=== PATIENT | male | born 1935 | race Caucasian/White ===

== ENCOUNTER 2019-01-30 13:23 | Inpatient (IN) | payer OTHER ==
[~2019-01-30] VITALS: Ht 167.6 cm; Wt 58.9 kg
--- NOTE | ~2019-01-30 | CON ---
[address] [address] CONSULTATION Name: PLACIDO IVORY Room: [address] IN M.R.#: [id number] Admission: 01/30/19 Attend Phys: Sukhi Carranza, Discharge: Date of : 31 Report #: [id number] THIS REPORT FOR: //name// CC: Monster Carranza HISTORY OF PRESENT ILLNESS: The patient is a very pleasant 83-year-old male who states that he lives at [facility], which is across the street from this hospital. The patient has had multiple strokes, but has a left hemiparesis. He is able to walk 60 feet with a walker. What precipitated this particular admission is that he had been sitting in his chair for some time when he slid out of the chair on to the ground. His speech seemed more slurred than usual, so he was brought to the hospital. However, CT angiogram shows no perfusion abnormalities, although the patient does have chronic microvascular disease. The patient's son arrived in the Emergency Room. His son states that the patient has had similar episodes to this in the past. Apparently, the patient has fallen asleep in his chair before and then fallen out of the chair. PAST MEDICAL HISTORY: Hypertension, hyperlipidemia, diabetes, stroke. PAST SURGICAL HISTORY: Unremarkable. MEDICATIONS: Amlodipine 10 mg daily, aspirin 325 mg daily, baclofen 10 mg t.i.d., vitamin D 1000 units b.i.d., Colace 100 mg daily, Zetia 10 mg daily, fluticasone nasal spray b.i.d., gabapentin 300 mg t.i.d., Mucinex 1200 mg b.i.d., magnesium 400 mg daily, oxybutynin 5 mg daily. ALLERGIES: None. VITAL SIGNS: Temperature 36.5, pulse rate 73, respiratory rate 16, blood pressure 123/65. On admission, his blood pressure was 131/61, bedside pulse oximetry 93% on 2 liters nasal cannula. LABORATORY WORK: Hematology: White blood cell count 7, hemoglobin 10.8, hematocrit 32.1, MCV 91.5, platelet count 250,000. INR 1. Urinalysis negative. Blood gas pH 7.43, CO2 34.9, O2 61.4, oxygen saturation 90.3. Chemistry: Sodium 141, potassium 4.1, chloride 105, carbon dioxide 29, BUN 14, creatinine 1, GFR 71, glucose 108. Liver functions normal. NEUROLOGIC: Cranial nerves 2-12 are grossly intact with the exception of the patient's speech. He does have a moderate dysarthria. Motor exam demonstrates a relative left hemiparesis. The patient has bilateral plantar extensor responses. Coordination demonstrates bilateral upper extremity dysmetria. [place] [address] CONSULTATION Name: PLACIDO IVORY SUKHI Room: [address] IN [facility]#: [id number] Admission: 01/30/19 Attend Phys: Sukhi Carranza, Discharge: Date of : 33 Report #: [id number] IMPRESSION: This patient has prior history of stroke. The patient has not had a new stroke. Perhaps when the patient falls asleep in his chair, he could have some type of belt to keep him from sliding out and falling onto the floor. PLAN: The patient should continue his current medications. Beyond that, I have no other suggestions than physical therapy for him. He did mention to me that when he does slide out of the chair and fall on to the floor, he has no way to get himself back up, some of this may be in part due to the stroke, but may also be due to generalized deconditioning as well. Physical therapy has been ordered for him and he tells me that he does use a walker in the long-term. Beyond that, I have no further suggestions. The Neurology service will follow the patient as needed. I thank you for your kind referral of the patient. By: [id number] Jacome DO /eddi
[~2019-01-30 13:23] MED LIST: ACETAMINOPHEN650 MG RECTAL; ASPIR-TRIN325 MG PO; ATORVASTATIN CA40 MG PO; COLACE 100 MG100 MG PO; COLACE100 MG PO; COZAAR 50 MG TA50 M2 PO; ENOXAPARIN40 MG/0.1 SUBQ; FLEXERIL PO; FLOMAX0.4 MG PO; FLONASE 0.05%50 MCG NASAL; MAGNESIUM CITR296 ML PO; MAGNESIUM OXID400 MG PO; MEDROLDOSEPACK PO; METFORMIN HCL500 MG PO; MILK OF MA2400 MG/10 PO; MINOCIN100 MG PO; MIRALAX17 GM PO; NORCO 5-325 TA1 EACH PO; ONDANSETRON HCL4 M2 PO; OXYBUTYNIN 5 MG5 M1 PO; SIMVASTATIN40 MG PO; TUMERIC; TYLENOL325 MG PO
[2019-01-30 13:24] VITALS: BP 131/61
[2019-01-30] MEDS ORDERED: NORVASC10 MG PO (13:41)
[2019-01-30] MEDS ORDERED: VITAMIN D1000 UNI1 PO (13:42)
[2019-01-30] MEDS ORDERED: ZETIA10 MG PO (13:42)
[2019-01-30] MEDS ORDERED: COMBIVENT INH (13:43)
[2019-01-30] MEDS ORDERED: TYLENOL325 MG PO (13:44)
[2019-01-30] MEDS ORDERED: SENNA PLUS TAB1 EACH PO (13:44)
[2019-01-30] MEDS ORDERED: BACTRIM DS TAB1 EACH PO (13:45)
[2019-01-30] MEDS ORDERED: NEURONTIN 300300 M1 PO (13:45)
[2019-01-30] MEDS ORDERED: LIORESAL 10 MG10 MG PO (13:46)
[2019-01-30] MEDS ORDERED: MIRAPEX0.125 MG PO (13:47)
[2019-01-30 13:53] LABS: HEMATOCRIT 37.4 % (42.0-52.0); HEMOGLOBIN 12.5 gm/dL (14.0-18.0); MCH 30.4 pg (26.0-34.0); MCHC 33.4 g/dL (28.0-37.0); MCV 91.1 fL (80.0-100.0); MPV 7.5 fl. (7.2-11.1); NUCLEATED RBCS 0 /100WBC; PLATELET COUNT* 303 thou/uL (150-400); RDW-CV 13.5 % (10.5-14.5); WBC 11.4 thou/uL (4.0-11.0)
[2019-01-30 14:06] LABS: ALBUMIN 3.1 g/dL (3.4-5.0); CALCIUM 8.8 mg/dL (8.5-10.1); CREATININE 1.1 mg/dL (0.6-1.3); POTASSIUM 3.8 mmol/L (3.5-5.1); TOTAL BILIRUBIN 0.4 mg/dL (<0.1-1.0); TOTAL PROTEIN 7.5 g/dL (6.4-8.2)
[2019-01-30 14:08] LABS: APTT 32.2 Seconds (25.0-31.3); PROTIME 10.4 Seconds (9.20-11.50)
[2019-01-30 14:34] LABS: ABSOLUTE EOSINOPHILS 0.1 thou/uL (0.0-0.7); ABSOLUTE LYMPHOCYTES 0.5 thou/uL (0.8-5.3); ABSOLUTE MONOCYTES 0.9 thou/uL (0.0-1.2); ABSOLUTE NEUTROPHILS 9.9 thou/uL (1.6-8.1); PLATELET ESTIMATE ADEQUATE
[2019-01-30 15:16] LABS: BE -1.1 mmol/L (-2 to +3); PCO2 34.9 mmHg (35.0-45.0); PO2 61.4 mmHg (75.0-100.0); pH 7.431 (7.340-7.450)
[2019-01-30 16:13] VITALS: BP 131/70
[2019-01-30 18:16] LABS: URINE BILIRUBIN NEGATIVE (Negative); URINE BLOOD NEGATIVE (Negative); URINE CLARITY CLEAR; URINE COLOR YELLOW; URINE GLUCOSE-RANDOM NEGATIVE (Negative); URINE KETONES NEGATIVE (Negative); URINE LEUKOCYTES-REFLEX NEGATIVE (Negative); URINE NITRITE-REFLEX NEGATIVE (Negative); URINE PROTEIN NEGATIVE (Negative); URINE SPECIFIC GRAVITY <= 1.005 (1.005-1.030); URINE UROBILINOGEN 0.2 E.U./dl (0.2-1.0)
[2019-01-30 23:39] VITALS: BP 110/51
[2019-01-31] VITALS (8 sets, daily range): BP systolic 109–125; BP diastolic 40–65
[2019-01-31 04:57] LABS: HEMATOCRIT 32.1 % (42.0-52.0); HEMOGLOBIN 10.8 gm/dL (14.0-18.0); MCH 30.6 pg (26.0-34.0); MCHC 33.5 g/dL (28.0-37.0); MCV 91.5 fL (80.0-100.0); MPV 7.3 fl. (7.2-11.1); RBC 3.51 mil/uL (4.50-6.00); RDW-CV 13.5 % (10.5-14.5)
[2019-01-31 05:38] LABS: CALCIUM 9.2 mg/dL (8.5-10.1); MAGNESIUM 2.4 mg/dL (1.8-2.4); POTASSIUM 4.1 mmol/L (3.5-5.1)
[2019-02-01] VITALS: BP 109/47; BP 109/48
[2019-02-01 04:00] VITALS: BP 119/61
[2019-02-01 04:41] LABS: HEMATOCRIT 31.6 % (42.0-52.0); HEMOGLOBIN 10.7 gm/dL (14.0-18.0); MCH 30.8 pg (26.0-34.0); MCHC 33.7 g/dL (28.0-37.0); MCV 91.5 fL (80.0-100.0); MPV 7.4 fl. (7.2-11.1); RBC 3.46 mil/uL (4.50-6.00); RDW-CV 13.2 % (10.5-14.5); WBC 6.4 thou/uL (4.0-11.0)
[2019-02-01 04:53] LABS: CALCIUM 8.6 mg/dL (8.5-10.1); CREATININE 0.9 mg/dL (0.6-1.3); MAGNESIUM 2.3 mg/dL (1.8-2.4); POTASSIUM 4.1 mmol/L (3.5-5.1)
[2019-02-01 07:30] VITALS: BP 137/67
[2019-02-01 07:45] VITALS: BP 137/67
[2019-02-01 17:30] VITALS: BP 126/55
[2019-02-01 20:06] VITALS: BP 128/65
[2019-02-02] VITALS (8 sets, daily range): BP systolic 104–145; BP diastolic 58–89
[2019-02-02 04:40] LABS: ABSOLUTE EOSINOPHILS 0.3 thou/uL (0.0-0.7); ABSOLUTE LYMPHOCYTES 1.3 thou/uL (0.8-5.3); ABSOLUTE MONOCYTES 0.6 thou/uL (0.0-1.2); ABSOLUTE NEUTROPHILS 4.4 thou/uL (1.6-8.1); BASOPHILS 0.5 %; EOSINOPHILS 4.7 %; HEMATOCRIT 35.5 % (42.0-52.0); HEMOGLOBIN 11.7 gm/dL (14.0-18.0); LYMPHOCYTES 19.9 %; MCH 30.1 pg (26.0-34.0); MCHC 33.1 g/dL (28.0-37.0); MCV 90.9 fL (80.0-100.0); MONOCYTES 9.4 %; MPV 7.6 fl. (7.2-11.1); NUCLEATED RBCS 0 /100WBC; PLATELET COUNT* 298 thou/uL (150-400); POLYS 65.5 %; RDW-CV 13.4 % (10.5-14.5); WBC 6.7 thou/uL (4.0-11.0)
[2019-02-02 05:27] LABS: CALCIUM 9.1 mg/dL (8.5-10.1); CREATININE 0.9 mg/dL (0.6-1.3); POTASSIUM 3.8 mmol/L (3.5-5.1)
[2019-02-02] MEDS ORDERED: SENNA PLUS TAB1 EACH PO (12:46)
[2019-02-02] MEDS ORDERED: ATORVASTATIN CA40 MG PO (12:46)
[2019-02-02] MEDS ORDERED: ASPIRIN81 M2 PO (12:46)
[2019-02-03 04:00] VITALS: BP 145/72
[2019-02-03 08:47] VITALS: BP 150/85
[2019-02-03 12:00] VITALS: BP 143/58
[2019-02-03] MEDS ORDERED: MUCINEX600 MG PO (13:42)
[2019-02-03 13:45] VITALS: BP 143/58
[2019-02-03] MEDS ORDERED: METFORMIN HCL500 MG PO (14:37)
[2019-02-03] MEDS ORDERED: COLACE100 MG PO ×2 (15:02→15:03)
[2019-02-03 16:06] VITALS: BP 122/68
[2019-02-03 20:00] VITALS: BP 147/61
[2019-02-04] VITALS: BP 115/56
[2019-02-04 04:00] VITALS: BP 159/70
[2019-02-04 08:00] VITALS: BP 144/69
[2019-02-04 11:21] VITALS: BP 122/64
== END 2019-02-04 14:21 | DRG 69 ==
LOC: M.ERS 13:23 → M.2W 14:55 → M.TBA-ER 14:55 → M.2W 16:28
PROVIDERS: Family Medicine; Personal Emergency Response Attendant; ADMIT Family Medicine
DX: G45.9 Transient cerebral ischemic attack, unspecified (principal); G93.41 Metabolic encephalopathy; E87.2 Acidosis; E78.5 Hyperlipidemia, unspecified; I10 Essential (primary) hypertension; M47.892 Other spondylosis, cervical region; E11.65 Type 2 diabetes mellitus with hyperglycemia; K59.09 Other constipation; W07.XXXA Fall from chair, initial encounter; T38.3X5A Adverse effect of insulin and oral hypoglycemic [antidiabetic] drugs, initial encounter; Y93.89 Activity, other specified; Y92.89 Other specified places as the place of occurrence of the external cause; Y99.8 Other external cause status; Z86.73 Personal history of transient ischemic attack (TIA), and cerebral infarction without residual deficits; Z79.82 Long term (current) use of aspirin; Z79.899 Other long term (current) drug therapy; Z82.49 Family history of ischemic heart disease and other diseases of the circulatory system

== ENCOUNTER 2019-03-05 18:14 | Inpatient (IN) | payer OTHER ==
[~2019-03-05] VITALS: Ht 167.6 cm; Wt 56.7 kg
[~2019-03-05 18:14] MED LIST changes: +ASPIRIN81 M2 PO; +BACTRIM DS TAB1 EACH PO; +COMBIVENT INH; +LIORESAL 10 MG10 MG PO; +MIRAPEX0.125 MG PO; +MUCINEX600 MG PO; +NEURONTIN 300300 M1 PO; +NORVASC10 MG PO; +SENNA PLUS TAB1 EACH PO; +VITAMIN D1000 UNI1 PO; +ZETIA10 MG PO
[2019-03-05 20:00] VITALS: BP 126/56
[2019-03-05] MEDS ORDERED: NEURONTIN 300300 M1 PO (20:13)
[2019-03-05 21:50] LABS: URINE BILIRUBIN NEGATIVE (Negative); URINE BLOOD NEGATIVE (Negative); URINE CLARITY CLEAR; URINE COLOR YELLOW; URINE GLUCOSE-RANDOM NEGATIVE (Negative); URINE KETONES NEGATIVE (Negative); URINE LEUKOCYTES-REFLEX NEGATIVE (Negative); URINE NITRITE-REFLEX NEGATIVE (Negative); URINE PROTEIN NEGATIVE (Negative); URINE SPECIFIC GRAVITY 1.015 (1.005-1.030); URINE UROBILINOGEN 0.2 E.U./dl (0.2-1.0)
--- NOTE | 2019-03-06 00:48 | NUR ---
ASSUMED CARE AT 1945 PATIENT ADMITTED TO ROOM 326 FROM [facility]. CAME TO FLOOR PER W/C WITH SON ACCOMPANYING HIM. PATIENT ALERT, ORIENTED TO PLACE, SITUATION, AND SELF, BUT HAS PROBLEMS REMEMBERING DATE, DAY, MONTH AND SEASON. ASSESSMENT COMPLETE. BUTTOCKS PINK, MOISTURE BARRIER APPLIED. ASSISTED TO LIE ON SIDE, POSITIONED WITH PILLOWS. VOIDS PER URINAL. BLADDER SCANNED IMMEDIATELY POST VOID, GOT 13 ML. U/A SENT TO LAB WITH FIRST VOID. TAKES PILLS ONE AT A TIME WITH WATER. MEDICATED FOR SACROILIAC PAIN WITH TYLENOL WITH SLEEPING OBSERVED. SOME THICKENED SPEECH NOTED. NOT ON DIABETIC MEDS, BLOOD SUGAR CHECK ORDERED FOR AM ONLY. TURNS WITH ASSIST. LT SIDED WEAKNESS NOTED, BUT MOVES ALL EXTREMITIES. HOURLY ROUNDS CONTINUE. BED ALARM ON. CALL LITE IN REACH.
[2019-03-06 03:56] LABS: HEMATOCRIT 35.5 % (42.0-52.0); HEMOGLOBIN 11.6 gm/dL (14.0-18.0); MCH 29.2 pg (26.0-34.0); MCHC 32.8 g/dL (28.0-37.0); MCV 89.1 fL (80.0-100.0); MPV 7.6 fl. (7.2-11.1); RBC 3.98 mil/uL (4.50-6.00); RDW-CV 14.2 % (10.5-14.5); WBC 5.8 thou/uL (4.0-11.0)
[2019-03-06 04:54] LABS: CALCIUM 8.8 mg/dL (8.5-10.1); CREATININE 0.7 mg/dL (0.6-1.3)
--- NOTE | 2019-03-06 06:04 | NUR ---
RESTED QUITELY MOST OF THE NIGHT, SNORING RESPS NOTED AT TIMES. MOVES SELF IN BED. NO C/O PAIN. HOURLY ROUNDS CONTINUE. BED ALARM ON. CALL LITE IN REACH.
[2019-03-06 08:00] VITALS: BP 135/76
[2019-03-06 20:00] VITALS: BP 130/52
[2019-03-07 05:22] LABS: ALBUMIN 2.9 g/dL (3.4-5.0); CALCIUM 8.8 mg/dL (8.5-10.1); CREATININE 0.7 mg/dL (0.6-1.3); TOTAL BILIRUBIN 0.3 mg/dL (<0.1-1.0); TOTAL PROTEIN 6.4 g/dL (6.4-8.2)
--- NOTE | 2019-03-07 05:35 | NUR ---
ASSUMED CARE AT 1920. ALERT AND ORIENTED. PLEASANT. DENIED ANY NEED FOR PAIN MEDS. TOOK PILLS WHOLE. USED URINAL AND RN EMPTIED. NO ISSUES OVERNIGHT. SLEPT WELL. CALL LIGHT IN REACH AND BED ALARM ON.
[2019-03-07 07:30] VITALS: BP 139/56
--- NOTE | 2019-03-07 17:57 | NUR ---
ASSUMED CARE AT 0730. ALERT AND ORIENTED PLEASANT COOPERATIVE. HX OF CVA L SIDE WEAKNESS. NEEDS ASSIST TO GET FROM LYING TO SITTING POSITION ON SIDE OF BED EATS BREAKFAST WITH SET UP FEEDS SELF APPETITE GOOD. MEDICATED X 1 WITH TYLENOL FOR C/O HIP PAIN WITH SLIGHT RELIEF STATED. TAKES MEDS WITH WATER 1 AT A TIME WITHOUT DIFFICULTY. VOIDS PER URINAL WITH ASSIST. ABLE TO GET LEGS INTO BED WITHOUT ASSISTANCE. USES CALL LIGHT APPROPRIATELY FOR ASSIST.
[2019-03-07 20:00] VITALS: BP 119/59
--- NOTE | 2019-03-08 07:31 | NUR ---
ASSUMED CARES AT 1920. ALERT AND ORIENTED. PLEASANT. MOD ASSIST WITH GAIT BELT AND WALKER. NEEDS BOOST FROM SIT TO STAND. SHUFFLES FEET. RIGHT FOOT IS WEAKER. PT HAS MUCH DIFFICULTY TURNING AROUND TO SIT DOWN. RIGHT FOOT DOES NOT WANT TO "COOPERATE". PT USED URINAL. HAD BM IN TOILET. RN ASSISTED WITH CARES AND DRESSING. SLEPT WELL MOST OF THE NIGHT. CALL LIGHT IN REACH AND BED ALARM ON.
[2019-03-08 08:09] VITALS: BP 126/69
--- NOTE | 2019-03-08 12:08 | NUR ---
Nutrition: Consult for new rehab pt. Admitted with Rt CVA. Alb 2.9. +BM. Good appetite, 100% of meals consumed. Wt: 131#. H/o DM, HTN, HLD. Regular diet ordered. No nutrition concerns at this time. Low risk.
--- NOTE | 2019-03-08 14:10 | NUR ---
ASSUMED CARE AT 0730. ALERT ORIENTED PLEASANT COOPERATIVE. HX OF CVA L SIDE WEAKNESS. FEEDS SELF WITH SET UP APPETITE GOOD TAKES MEDS I AT A TIME WITH WATER WITHOUT DIFFICULTY. PARTICIPATING IN THERAPIES. TRANSFERS WITH 1 ASSIST G BELT WALKER CUEING HAS DIFFICULTY GETTING RT. FOOT TO MOVE AND TURN CORNERS. MEDICATED WITH PRN TYLENOL THIS A.M. BEFORE THERAPIES STARTED. USES CALL LIGHT APPROPRIATELY FOR ASSIST. VOIDS PER URINAL STAFF EMPTIES.
--- NOTE | 2019-03-08 14:57 | NUR ---
ASSUMED CARE AT 0730. ALERT ORIENTED PLEASANT COOPERATIVE. HX OF CVA L NICOLE. TRANSFERS WITH 1 ASSIST G BELT WALKER FROM BED TO CHAIR HAS DIFFICULTY TURNING CORNERS WITH RT. FOOT MOVEMENT. NEEDS CUES. MEDICATED WITH TYLENOL THIS A.M. FEEDS SELF TAKES MEDS 1 AT A TIME WITH WATER WITHOUT DIFFICULTY. APPETITE GOOD. VOIDS PER URINAL. PARTICIPATING IN THERAPIES THROUGHOUT THE DAY. USES CALL LIGHT APPROPRIATELY FOR ASSIST.
--- NOTE | 2019-03-08 17:15 | NUR ---
SW met with pt to complete initial assessment, introduce self, and SW role on inpt rehab unit. Pt plans to dc home with son and . Pt goal is for being able to safely manage the stairs in his home and strengthen his walking/mobility. Pt has a RW and wc if needed. Pt has hx of [facility] at previous dc 02/04/19. Pt has hx of HH; agency name unknown. SW to continue to follow to assist with safe dc planning.
[2019-03-08 20:00] VITALS: BP 139/48
--- NOTE | 2019-03-09 05:18 | NUR ---
Assumed patient care at 1900. Patient alert and oriented times four. Ambulates in wc independently. Patient also able manage clothing indpendently. Very anxious to get him home. service provider completed as charted.
[2019-03-09 07:39] VITALS: BP 135/85
--- NOTE | 2019-03-09 14:17 | NUR ---
PATIENT IS ALERT AND ORIENTEC X 4, TRANSFER ASSIST OF ONE EXTENSIVE ASSIST. TO MAIN DINNING AREA FOR MEALS. PAIN BACK MEDICATED WITH TYLENOL. NO FURTHER COMPLAINTS. CONT. TO MONITOR PAIN. CONT. WITH PLAN OF CARE AT THIS TIME.
[2019-03-09 19:00] VITALS: BP 116/61
--- NOTE | 2019-03-10 05:42 | NUR ---
ASSUMED PATIENT CARE AT 1900. PATIENT ALERT AND ORIENTED TIMES FOUR. ABLE TO AMBULATE TO THE RESTROOM, VERY SLOW. PATIENT UNABLE TO DO MORE THAN A SHUFFLE STEP. NOTED LACK OF BED MOBILITY AND OVERALL PATIENT WEAKNESS. REMAINS PLEASANT AND AWARE OF NEEDS. BOTTOM CAGER AND HOURLY ROUNDING COMLETED CHARTED
[2019-03-10 08:00] VITALS: BP 127/58
--- NOTE | 2019-03-10 15:29 | NUR ---
SW met with pt and pt son to review team conference summary and plan for pt to remain on rehab unit one more week with team to reassess pt length of stay during team conference next Friday. Pt/pt son concerned for pt arthritis being a barrier to progress and hoped to find ways to manage pain so pt could be more functionally mobile in walking and stairs and ADLs. Pt and pt son in agreement with plan for reteam next Friday. SW to continue to follow to assist with safe dc planning.
--- NOTE | 2019-03-10 16:33 | NUR ---
PATIENT HAS BEEN AMBULATING WITH ROLLING WALKER. REQUIRES EXT ASSIST WITH STANDING. CONT. OF BOWEL AND BLADDER DURING THE DAY. DENIES COMPLAINTS OF PAIN OR DISCOMFORT. NO SIGN OF DISTRESS AT THIS TIME. CONT. WITH CURRENT PLAN OF CARE AT THIS TIME.
[2019-03-10 19:00] VITALS: BP 119/43
[2019-03-11] VITALS (7 sets, daily range): BP systolic 118–140; BP diastolic 48–72
--- NOTE | 2019-03-11 07:32 | NUR ---
ASSUMED CARES AT 1920. ALERT AND ORIENTED. PLEASANT. DENIED ANY PAIN. USED URINAL OVERNIGHT. SLEPT WELL. AT 0630, PT HAD INTERCEPTED FALL IN BATHROOM. MIN ASSIST WITH GAIT BELT AND WALKER. HOSE MAKER WALKED WITH PT INTO BATHROOM. RIGHT WHEN REACHED TOILET PT'S KNEES GAVE WAY. HOSE MAKER WAS ABLE TO HOLD PT UP AND PT DID NOT HIT THE FLOOR. THIS RN ALSO THEN ASSISTED PT UP ONTO TOILET AND THEN BACK INTO BED. PT REPORTED THAT HIS LEGS BECAME EXTREMELY WEAK AFTER WALKING TO BATHROOM. NO OTHER ISSUES. VITALS WNL. PT RESTING COMFORTABLY IN BED AT THIS TIME.
--- NOTE | 2019-03-11 15:48 | EKG ---
[place] [address] ELECTROCARDIOGRAM REPORT Name: PLACIDO IVORY Room: [address] ADM IN M.R.#: [id number] Admission: 03/05/19 Attend Phys: Marco A Carreon MD Discharge: Date of : 33 Report #: [id number] THIS REPORT FOR: //name// [facility] Test Date: 2019-03-11 Test Time: 15:18:50 Pat Name: PLACIDO IVORY Department: Room: [address] Gender: M Cook Box Filler: : 1935 Requested By: Hammad King Order Number: [id number] Reading MD: Sebastian Camarillo Measurements Intervals [place] Rate: 89 P: 42 MN: 213 QRS: -20 QRSD: 103 T: 81 QT: 383 QTc: 467 Interpretive Statements Sinus rhythm Ventricular bigeminy First-degree AV block Left axis deviation Low voltage, precordial leads Minimal ST depression, lateral leads Compared to ECG 06/30/2017 14:07:23 Ventricular premature complex(es) now present Low QRS voltage now present ST (T wave) deviation now present Left ventricular hypertrophy no longer present Electronically Signed On 03-11-2019 15:48:18 CDT by Sebastian Camarillo [email or web address] <ELECTRONICALLY SIGNED> By: Sebastian Camarillo MD, [facility] 03/11/19 1548 1518 1518 Sebastian Camarillo MD, [facility] /EPI
--- NOTE | 2019-03-11 17:03 | NUR ---
ASSUMMED CARE OF PT AT 0730, PT ALERT AND ORIENTED, FORGETFUL, TRANSFERS WITH MOD ASSIST OF 1, GB WALKER, NEEDS LIFTING ASSIST, COMPLAINS OF PAIN IN RIGHT HIP, MEDICATED PER ORDER, PT PULSE NOTED TO BE 41 THIS AM, RECHECKED AND PULSE IS 48, NOTED THAT PT HAS HAD OCCASIONAL LOW PULSES BUT AT OTHER TIMES 50-70 RANGE, DR HDZ INFORMED ON ROUNDS, EKG AND CARDIOLOGY CONSULT ORDERED, EKG ABNORMAL WITH BIGEMINAL PVC, CARDIOLOGY NURSE NOTIFIED AND HERE TO SEE PT, VSS, PT DENIES DIZZINESS, PT VOIDS PER URINAL/TOILET, PROPELLED WHEELCHAIR TO DININGROOM FOR LUNCH, PARTICIPATED IN ALL THERAPIES, HOURLY ROUNDING COMPLETED, ASSESSMENT COMPLETE, WILL CONTINUE TO MONITOR.
[2019-03-11 18:55] LABS: CALCIUM 9.4 mg/dL (8.5-10.1); CREATININE 0.8 mg/dL (0.6-1.3); MAGNESIUM 2.5 mg/dL (1.8-2.4)
--- NOTE | 2019-03-12 00:40 | NUR ---
ASSUMED CARE AT 1930. RESTING IN RECLINER. C/O NEEDING TO HAVE BM. UP WITH MAX ASSIST OF ONE, GAIT BELT STAND PIVOT TO W/C. ABLE TO GET ON TOILET WITH RISER FROM W/C USING GRAB BAR WITH MAX ASSIST OF ONE. PATIENT DID NOT HAVE BM. TOOK TWO STAFF TO ASSIST PATIENT FROM TOILET/RISER TO W/C, THEN THREE PEOPLE TO GET PATIENT BACK TO BED FROM W/C. PATIENT STATES HE COULD NOT STAND ON HIS LEG. NEURO SIGNS CHECKED, PERRLA, HAND POWER PLANT ASSISTANT EQUAL. TURNS SIDE TO SIDE PER SELF. TAKES PILLS WHOLE WITH WATER. PULSE CHECKED MANUALLY, IRREGULAR, BUT 71 WHEN TAKEN OR 60 SECONDS. HOURLY ROUNDS CONTINUE. BED ALARM ON. CALL LITE IN REACH.
[2019-03-12 04:00] VITALS: BP 126/66
--- NOTE | 2019-03-12 05:30 | NUR ---
SLEPT MUCH OF THE NIGHT EXCEPT TO VOID. VOIDS PER URINAL. ASSISTED WITH TURNS UNTIL HE REFUSED FURTHER TURNS. NO C/O PAIN. Q4H NEURO/VS DONE, NO CHANGE. ALL WNL. HOURLY ROUNDS CONTINUE. BED ALARM ON. CALL LITE IN REACH.
[2019-03-12 07:15] VITALS: BP 113/51
[2019-03-12 08:00] VITALS: BP 113/51
--- NOTE | 2019-03-12 10:49 | NUR ---
SW provided referral for home modifications such as ramp and stair lift. SW explained to pt that although goal is stairs, pt and pt family may also want to keep home modifications in mind if needed at ca.
--- NOTE | 2019-03-12 12:28 | 2DMMODE ---
[place] [address] 2 D/M-MODE ECHOCARDIOGRAM Name: PLACIDO IVORY Room: [address] IN M.R.#: [id number] Admission: 03/05/19 Attend Phys: Marco A Carreon MD Discharge: Date of : 33 Date of Service: 03/12/19 1228 Report #: [id number] THIS REPORT FOR: //name// APPROVED REPORT Study performed: 03/12/2019 10:34:17 EXAM: Comprehensive 2D, Doppler, and color-flow Echocardiogram Patient Location: In-Patient BSA: 1.67 HR: 90 bpm BP: 113/51 mmHg Rhythm: NSR Other Information Study Quality: Excellent Indications Arrhythmia hx cva 2D Dimensions IVSd: 11.13 (7-11mm) LVOT Diam: 21.02 (18-24mm) LVDd: 51.31 mm PWd: 9.71 (7-11mm) Ascending Ao: 37.46 (22-36mm) LVDs: 26.24 (25-40mm) Aortic Root: 33.21 mm Volumes Left Atrial Volume (Systole) LA ESV Index: 30.00 mL/m2 Aortic Valve AoV Peak Leonel.: 1.98 m/s AO Peak Gr.: 15.63 mmHg LVOT Max P.08 mmHg AO Mean Gr.: 7.44 mmHg LVOT Mean P.53 mmHg LVOT Max V: 0.88 m/s AO V2 VTI: 32.30 cm LVOT Mean V: 0.57 m/s SOL (VTI): 1.95 cm2 LVOT V1 VTI: 18.14 cm Mitral Valve E/A Ratio: 0.82 MV Decel. Time: 215.48 ms MV E Max Leonel.: 0.73 m/[place] [address] 2 D/M-MODE ECHOCARDIOGRAM Name: PLACIDO IVORY Room: [address] IN ..#: [id number] Admission: 03/05/19 Attend Phys: Marco A Crareon MD Discharge: Date of : 31 Date of Service: 03/12/19 1228 Report #: [id number] PHT: 62.49 ms MVA (PHT): 3.52 cm2 TDI E/Medial E': 10.43 Medial E' Leonel.: 0.07 m/s Pulmonary Valve PV Peak Leonel.: 1.00 m/s PV Peak Gr.: 4.02 mmHg Tricuspid Valve RAP Estimate: 5.00 mmHg TR Peak Gr.: 23.07 mmHg RVSP: 28.00 mmHg PA Pressure: 28.00 mmHg Left Ventricle The left ventricle is normal size. There is normal LV segmental wall motion. There is normal left ventricular wall thickness. Left ventricular systolic function is normal. The left ventricular ejection fraction is within the normal range. LVEF is 55-60%. Grade I - abnormal relaxation pattern. Right Ventricle The right ventricle is normal size. The right ventricular systolic function is normal. Atria The left atrium size is normal. The right atrium size is normal. Aortic Valve Mild aortic valve sclerosis. Trace aortic regurgitation. No hemodynamically significant valvular aortic stenosis. Mitral Valve The mitral valve is normal in structure. Trace mitral regurgitation. No evidence of mitral valve stenosis. Tricuspid Valve The tricuspid valve is normal in structure. Mild tricuspid regurgitation. No pulmonary hypertension. Pulmonic Valve The pulmonary valve is normal in structure. Mild pulmonic [place] [address] 2 D/M-MODE ECHOCARDIOGRAM Name: PLACIDO IVORY Room: [address] IN [facility]#: [id number] Admission: 03/05/19 Attend Phys: Marco A Carreon MD Discharge: Date of : 31 Date of Service: 03/12/19 1228 Report #: [id number] Great Vessels The aortic root is normal in size. IVC is normal in size and collapses >50% with inspiration. Pericardium There is no pericardial effusion. <Conclusion> The left ventricle is normal size. Left ventricular systolic function is normal. The left ventricular ejection fraction is within the normal range. LVEF is 55-60%. Grade I - abnormal relaxation pattern. The right ventricle is normal size. The left atrium size is normal. Mild aortic valve sclerosis. Trace aortic regurgitation. No hemodynamically significant valvular aortic stenosis. The mitral valve is normal in structure. The tricuspid valve is normal in structure. IVC is normal in size and collapses >50% with inspiration. There is no pericardial effusion. There is normal LV segmental wall motion. <ELECTRONICALLY SIGNED> By: Getachew Edouard MD, [facility] 03/12/19 1228 1228 1228 Getachew Edouard MD, FACC /INF
--- NOTE | 2019-03-12 18:51 | NUR ---
ASSUMED CARE AT 0730. ALERT ORIENTED PLEASANT COOPERATIVE. HX OF CVA L SIDE WEAKNESS. TRANSFERS VERY SLOWLY AND NEEDS CUEING WITH TRANSFERS. PARTICIPATING IN THERAPIES THROUGHOUT THE DAY. MEDICATED X 2 ONCE WITH TYLENOL AND TRAMADOL X 1 FOR HIP PAIN WITH SOME RELIEF STATED. USES CALL LIGHT APPROPRIATELY FOR ASSISTANCE. FEEDS SELF TAKES MEDS ONE AT A TIME APPETITE GOOD. HAS BEEN UP IN CHAIR AT BEDSIDE WHEN NOT IN THERAPIES. SON VISITING THIS AFTERNOON. VOIDED X 2 IN BR TOILET.
[2019-03-12 20:30] VITALS: BP 133/57
--- NOTE | 2019-03-12 21:00 | NUR ---
RESTING IN BED WATCHING TV AND TALKING ON CELL. PRN ULTRAM GIVEN PER REQUEST FOR COMPLAINT OF LEFT HIP PAINT RATED "7". TOOK MEDS WHOLE ONE AT A TIME WITH WATER.
--- NOTE | 2019-03-13 05:43 | NUR ---
RESTED QUIETLY. NO FURTHER COMPLAINT OF PAIN. HOURLY ROUNDING IN PROGRESS.
[2019-03-13 06:15] VITALS: BP 126/76
[2019-03-13 07:15] VITALS: BP 110/64
[2019-03-13 09:00] VITALS: BP 110/64
--- NOTE | 2019-03-13 16:18 | NUR ---
ASSUMMED CARE OF PT AT 0730, PT ALERT AND ORIENTED, FORGETFUL, HAS HAD DIFFICULT TIME TRANSFERRING FROM BED TO CHAIR AND FROM CHAIR TO BED, UNABLE TO PUSH UP AND STAND, AND ONCE ASSISTED TO STAND, LEANS BACK, STIFF, NEEDED TO HAVE MAX ASSIST OF 2 TO TRANSFER. TAKING FOOD AND FLUIDS WELL, PT COMPLAINS OF BILATERAL HIP PAIN, MEDICATED PER ORDER, PROPELLED HIMSELF BACK FROM DININGROOM AFTER LUNCH, PT VOIDS PER URINAL, STATES HE HAD BM YESTERDAY, PARTICIPATED IN ALL THERAPIES, HOURLY ROUNDING COMPLETED, ASSESSMENT COMPLETE, WILL CONTINUE TO MONITOR.
--- NOTE | 2019-03-13 20:00 | NUR ---
AWAKENED FOR HS REASSESSMENT AND MEDICATION PASS. PAIN MED GIVEN FOR COMPLAINT IN BOTH HIPS RATED "8". TOOK MEDICATIONS WHOLE ONE AT A TIME WITH WATER. URINAL AND CALL LIGHT WITHIN REACH.
[2019-03-13 20:36] VITALS: BP 175/64
--- NOTE | 2019-03-14 05:59 | NUR ---
RESTED QUIETLY. USED URINAL X 2 DURING THE NIGHT. NO FURTHER COMPLAIN OF PAIN. HOURLY ROUNDING IN PROGRESS.
[2019-03-14 08:00] VITALS: BP 144/62
--- NOTE | 2019-03-14 15:29 | NUR ---
ASSUMMED CARE OF PT AT 0730, PT ALERT AND ORIENTED, SPEECH DYSARTHRIC, PT TRANSFERRED WITH MINIMAL ASSIST THIS AM WITH GB WALKER FROM BED TO CHAIR, PT REFUSED BATH, BUT DID DO GROOMING WITH SET UP, PT REFUSED TO CHANGE CLOTHES THIS AM, PT DID ASSIST WITH BRIEF CHANGE. WHEN ATTEMPTED TO TRANSFER FROM CHAIR TO WHEELCHAIR PRIOR TO LUNCH PT ATTEMPTED 5 TIMES BEFORE HE WAS ABLE TO STAND, THAN TOOK ABOUT 5 0R 6 SHUFFLE STEPS AND HIS KNEES GAVE OUT AND STAFF GOT W/C UNDER HIM, AFTER LUNCH WHEN ATTEMPTING TO GO FROM W/C TO BED PT UNABLE TO STAND OR GET HIS BUTTUCKS OFF THE CHAIR FOR MORE THAN A FEW INCHES, LIFT USE TO GET PT BACK TO BED, PT COMPLAINS OF BACK PAIN THIS AM, MEDICATED PER ORDER, PT TAKING FOOD AND FLUIDS WELL, HAD LUNCH IN DININGROOM,VOIDS PER URINAL. HOURLY ROUNDING COMPLETED, ASSESSMENT COMPLETE, WILL CONTINUE TO MONITOR.
[2019-03-14 19:00] VITALS: BP 123/69
--- NOTE | 2019-03-14 19:30 | NUR ---
RESTING QUIETLY IN BED. PAIN MEDICATION GIVEN FOR COMPLAINT OF LEFT HIP PAIN RATED "7". TOOK MEDICATION WHOLE ONE AT A TIME WITH WATER.
--- NOTE | 2019-03-15 05:24 | NUR ---
RESTED QUIETLY. USED THE URINAL X 3. NO FURTHER COMPLAINT OF PAIN. HOURLY ROUNDING IN PROGRESS.
[2019-03-15 08:02] VITALS: BP 115/87
--- NOTE | 2019-03-15 15:19 | NUR ---
ASSUMMED CARE OF PT AT 0730, PT ALERT AND ORIENTED, PT TRANSFERS FROM MIN ASSIST TO TOTAL ASSIST, HE MOVES SLOW WITH FREQUENT CUEING STANDS AND AMBULATED TO BATHROOM, AND AT OTHER TIMES NEEDS ASSIST OF 2 OR LIFT TO TRANSFER PT, PT VOIDS PER URINAL, PASSING FLATUS BUT NO BM THIS SHIFT, TAKING FOOD AND FLUIDS WELL, COMPLAINS OF BACK PAIN THIS AM AND RIGHT LEG PAIN THIS PM, MEDICATED PER ORDER, PARTICIPATED IN ALL THERAPIES, HOURLY ROUNDING COMPLETED, ASSESSMENT COMPLETE, WILL CONTINUE TO MONITOR.
--- NOTE | 2019-03-15 19:50 | NUR ---
RESTING QUIELTY IN BED. TRAMADOL GIVEN PER REQUEST FOR COMPLAINT OF BACK AND RIGHT LEG PAIN RATED "8". CALL LIGHT AND URINAL WITHIN REACH.
[2019-03-15 20:00] VITALS: BP 103/68; BP 109/57
--- NOTE | 2019-03-16 05:39 | NUR ---
RESTED SOUNDLY. VOIDED PER URINAL THIS MORNING. NO FURTHER COMPLAINT OF PAIN. HOURLY ROUNDING IN PROGRESS.
[2019-03-16 08:00] VITALS: BP 128/64
--- NOTE | 2019-03-16 16:58 | NUR ---
BRE met with pt and pt son in preparation for team conference. SW discussed concerns and questions regarding pt ability and home situation and safe dc planning. Pt son encouraging pt but also stating that if pt unable to regain some independence with mobility and ADLs, pt may have to consider alternate living arrangements. Pt son explained that the home would not be able to be modified to arrange for ramp, wc, stair lift, etc. Pt understood and was perseverating on not being able to pull his pants up over his bottom; but that he thought he would be able to practice walking and stairs. SW explained team's recommendations and how if pt does not show ability to safely perform mobility tasks, pt would not be able to practice stairs. SW provided encouragement and to continue to follow to assist with safe dc planning.
--- NOTE | 2019-03-16 18:29 | NUR ---
PT HAS REFUSED TO STAND TODAY, ALSO REFUSES TO CUT THE FOOD ON HIS TRAY AND SAYS HE CAN'T HELP WITH REPOSITIONING IN BED. PT IS ABLE TO FEED HIMSELF AND USES THE CALL LIGHT FREQUENTLY FOR THINGS HE COULD DO FOR HIMSELF BUT WON'T. FALL PRECAUTIONS AND HOURLY ROUNDING CONTINUE.
[2019-03-16 20:12] VITALS: BP 149/61
--- NOTE | 2019-03-17 00:43 | NUR ---
ASSUMED CARE AT 1930. PATIENT RESTING IN BED. TAKES PILLS WHOLE WITH WATER ONE AT A TIME. ASSISTS WITH TURN UPON REQUEST. DID REACH FOR HAND HOLDS AT TOP OF BED TO PULL HIMSELF UP, BUT HE WAS TOO FAR DOWN. DID ASSIST BY BENDING LEGS AND PUSHING UP WHILE TWO NURSES PULLED HIM UP IN BED. U/A SENT TO LAB, RESULTS PENDING. WAS INCONTINENT OF URINE INTO BRIEF. BRIEF REMOVED AT HS. NO C/O PAIN. HOURLY ROUNDS CONTINUE. BED ALARM ON. CALL LITE IN REACH.
[2019-03-17 01:31] LABS: URINE BILIRUBIN NEGATIVE (Negative); URINE BLOOD NEGATIVE (Negative); URINE CLARITY CLEAR; URINE COLOR YELLOW; URINE GLUCOSE-RANDOM NEGATIVE (Negative); URINE KETONES NEGATIVE (Negative); URINE LEUKOCYTES-REFLEX NEGATIVE (Negative); URINE NITRITE-REFLEX NEGATIVE (Negative); URINE PROTEIN NEGATIVE (Negative); URINE UROBILINOGEN 0.2 E.U./dl (0.2-1.0)
[2019-03-17 05:08] LABS: ALBUMIN 3.2 g/dL (3.4-5.0); CALCIUM 9.2 mg/dL (8.5-10.1); CREATININE 0.8 mg/dL (0.6-1.3); POTASSIUM 3.7 mmol/L (3.5-5.1); TOTAL BILIRUBIN 0.4 mg/dL (<0.1-1.0); TOTAL PROTEIN 7.3 g/dL (6.4-8.2)
--- NOTE | 2019-03-17 05:52 | NUR ---
RESTED QUIETLY, BUT DID NOT SLEEP WELL. C/O CONSTIPATION. MANUALLY CHECKED, SOME STOOL IN LOWER RECTUM THAT WAS SOFT ENOUGH TO PASS. SMALL AMOUNT REMOVED MANUALLY. SUPPOSITORY GIVEN, LATER INCONTINENT OF LARGE AMOUNT OF SOFT LIGHT BROWN STOOL. GIVEN MOM. LATER C/O THAT HE STILL HAD STOOL, OBSERVED SOME STOOL BEING PASSED. PATIENT C/O HE COULDN'T PASS ANY MORE STOOL. LARGE AMOUMT OF SOFT, FORMED LIGHT BROWN STOOL MANUALLY REMOVED BY THIS NURSE. PATIENT PASSING FLATUS AFTERWARDS. INCONTINENT OF URINE WHILE VOIDING WITH ATTEMPTS TO HAVE BM. PATIENT THOUGHT HE HAD TO STAY IN BED TODAY BECAUSE HE HAD TAKEN MOM. PATIENT INSTRUCTED THAT HE WAS TO HAVE HIS REGULAR THREE HOURS OF THERAPY AND MOVING AROUND WITH THERAPY WOULD BE BENEFICIAL IN RELIEVING CONSTIPATION. HOURLY ROUNDS CONTINUE. BED ALARM ON. CALL LITE IN REACH.
[2019-03-17 08:03] VITALS: BP 142/61
--- NOTE | 2019-03-17 17:10 | NUR ---
SW met with pt and pt son to review team conference summary and plan for pt to remain on rehab unit one more week as pt did show some progress in therapies and SW mentioned pt will need to continue to show progress towards goals. Pt and pt son in agreement with plan. SW to continue to follow to assist with safe dc planning.
[2019-03-17 19:55] VITALS: BP 108/52
--- NOTE | 2019-03-17 20:00 | NUR ---
AWAKENED FOR HS REASSESSMENT AND MEDICATION PASS. DENIES DISCOMFORT. TOOK MEDICATIONS WHOLE ONE AT A TIME WITH WATER. CALL LIGHT AND URINAL WITHIN REACH.
--- NOTE | 2019-03-18 05:27 | NUR ---
INCONTINENT OF STOOL X ONE DURING THE NIGHT. CAROLYN CARE GIVEN. USED THE URINAL DURING THE NIGHT. HOURLY ROUNDING IN PROGRESS.
[2019-03-18 09:40] VITALS: BP 127/76
--- NOTE | 2019-03-18 18:25 | NUR ---
PT VSS THIS SHIFT WITH LITTLE C/O PAIN THIS SHIFT. PT CAN BE FORGETFUL AND IS STRUGGLING WITH FATIGUE AND WEAKNESS THIS SHIFT AND IS REQUIRING THE ASSISTANCE OF 2 STAFF MEMBERS TO AMBULATE THIS SHIFT. HOURLY ROUNDING MAINTAINED THIS SHIFT AND PT REMINDED FREQUENTLY TO SHIFT WEIGHT WHILE SITTING BETWEEN THERAPIES. PT TOLERATING RA AND DIET WITH NO CONCERNS THIS SHIFT. WILL CONTINUE TO MONITOR AND ASSESS.
--- NOTE | 2019-03-18 19:20 | NUR ---
AWAKENED FOR HS REASSESSMENT. DENIES DISCOMFORT. CALL LIGHT AND URINAL WITHIN REACH.
[2019-03-18 20:19] VITALS: BP 118/55
--- NOTE | 2019-03-19 05:12 | NUR ---
RESTED BRITTANI. USED URINAL DURING THE NIGHT. NO COMPLAINTS VOICED. HOURLY ROUNDING IN PROGRESS.
[2019-03-19 09:11] VITALS: BP 168/85
--- NOTE | 2019-03-19 15:24 | NUR ---
ASSUMMED CARE OF PT AT 0730, PT ALERT AND ORIENTED, PT TRANSFERS WITH MIN ASSIST GB WALKER FROM BED TO CHAIR THIS AM, AMBULATED TO BATHROOM X 1, GAIT SLOW, SHUFFLES, COMPLAINS OF BACK PAIN, LIDOCAINE PATCH APPLIED, REFUSES PAIN PILL THIS SHIFT, HAD SMALL INCONTINENT STOOL IN BRIEF THIS AM, TAKING FOOD AND FLUIDS WELL, PARTICIPATED IN ALL THERAPIES, HOURLY ROUNDING COMPLETED, ASSESSMENT COMPLETE, WILL CONTINUE TO MONITOR.
[2019-03-19 20:26] VITALS: BP 130/67
--- NOTE | 2019-03-20 05:44 | NUR ---
ASSUMED PT CARE AT 1930, POLITE AND COOPERATIVE WITH CARES. TRANSFERS WITH MIN ASSIT, GAIT BELT AND WALKER. NO C/O PAIN. TAKES PILLS WHOLE WITH WATER ONE AT A TIME. NO STOOL THIS SHIFT. USES CALL LIGHT APPROPRIATELY. CALL LIGHT AND FREQUENTLY USED ITEMS WITHIN REACH. HOURLY ROUNDING IN PROGRESS, WILL CONTINUE TO MONITOR.
[2019-03-20 07:00] VITALS: BP 127/63
--- NOTE | 2019-03-20 15:31 | NUR ---
ASSUMED CARE AT 0730. ALERT ORIENTED PLEASANT COOPERATIVE. HX OF CVA L WEAKNESS. TRANSFERS WITH MIN SBA G BELT WALKER AMBULATED TO BR HAD LARGE BM ABLE TO DO HYGEINE AND CLOTHING ADJUSTMENTS. FEEDS SELF WITH SET UP. APPETITE GOOD TAKES MEDS WITHOUT DIFFICULTY 1 AT A TIME WITH SIPS OF WATER. USES CALL LIGHT APPROPRIATELY FOR ASSISTANCE. PARTICIPATES IN THERAPIES THROUGHOUT THE DAY.
[2019-03-20 20:04] VITALS: BP 146/53
--- NOTE | 2019-03-21 05:23 | NUR ---
ASSUMED PT CARE AT 1930. PT ALERT AND ORIENTED X4, POLITE AND COOPERATIVE WITH CARES. HX OF CVA WITH LEFT SIDED WEAKNESS. PT TRANSFERS WITH SBA, GAIT BELT AND WALKER. NO STOOL THIS SHIFT. USED URINAL AND STAFF EMPTIED. USES CALL LIGHT APPROPRIATELY. TAKES PILLS WHOLE ONE AT A TIME WITH WATER. CALL LIGHT AND FREQUENTLY USED ITEMS WITHIN REACH. HOURLY ROUNDING IN PROGRESS, WILL CONTINUE TO MONITOR.
[2019-03-21 08:00] VITALS: BP 138/52
--- NOTE | 2019-03-21 15:24 | NUR ---
ASSUMED CARE AT 0730. ALERT ORIENTED PLEASANT AND COOPERATIVE. HX OF CVA WEAKNESS L SIDE. TRANSFERS WITH 1 ASSIST WITH G BELT WALKER AND CUEING FROM BED TO CHAIR. FEEDS SELF TAKES MEDS 1 AT A TIME. USES TOILET FOR BM THIS A.M. VOIDED X 1 PER URINAL. NO C/O PAIN USES CALL LIGHT APPROPRIATELY FOR ASSIST. TO FOR LUNCH PER W/C.
[2019-03-21 19:58] VITALS: BP 117/59
--- NOTE | 2019-03-21 23:11 | NUR ---
ASSUMED CARE AT 1930. RESTING IN BED. TURNS SELF. TAKES PILLS WITH WATER. VOIDS PER URINAL. NO C/O PAIN. HOURLY ROUNDS CONTINUE. BED ALARM ON. CALL LITE IN REACH.
[2019-03-22 04:29] LABS: CALCIUM 8.8 mg/dL (8.5-10.1); CREATININE 0.7 mg/dL (0.6-1.3); MAGNESIUM 2.2 mg/dL (1.8-2.4); POTASSIUM 3.7 mmol/L (3.5-5.1)
--- NOTE | 2019-03-22 06:29 | NUR ---
SLEPT MOST OF THE NIGHT EXCEPT TO USE URINAL. TURNS SELF. NO C/O PAIN. HOURLY ROUNDS CONTINUE. BED ALARM ON. CALL LITE IN REACH.
[2019-03-22 08:00] VITALS: BP 114/58
--- NOTE | 2019-03-22 15:31 | NUR ---
ASSUMMED CARE OF PT AT 0730, PT TRANSFERS WITH MOD ASSIST GB WALKER,CUEING, NEEDS SLIGHT LIFTING ASSIST, PT COMPLAINS OF LOW BACK PAIN, LIDOCAINE PATCH APPLIED, NO REQUEST FOR FURTHER PAIN MEDICATION, PT VOIDS PER URINAL/TOILET, TAKING FOOD AND FLUIDS WELL, TO DININGROOM FOR LUNCH, PROPELLED W/C BACK TO ROOM INDEPENDENTLY, PARTICIPATED IN ALL THERAPIES, HOURLY ROUNDING COMPLETED, ASSESSMENT COMPLETE, WILL CONTINUE TO MONITOR.
[2019-03-22 19:30] VITALS: BP 139/58
--- NOTE | 2019-03-23 05:18 | NUR ---
ASSUMED PT CARE AT 1930. PT ALERT AND ORIENTED X4, POLITE AND COOPERATIVE WITH CARES. HX OF CVA WITH LEFT SIDED WEAKNESS. PT TRANSFERS WITH SBA, GAIT BELT AND WALKER. DENIES PAIN. NO STOOL THIS SHIFT. USES URINAL, STAFF EMPTIES. TAKES PILLS WHOLE ONE A TIME WITH WATER. USES CALL LIGHT APPROPRIATELY. CALL LIGHT AND FREQUENTLY USED ITEMS WITHIN REACH. HOURLY ROUNDING IN PROGRESS, WILL CONTINUE TO [facility].
[2019-03-23 07:15] VITALS: BP 145/70
--- NOTE | 2019-03-23 17:09 | NUR ---
ASSUMMED CARE OF PT AT 0730, PT ALERT AND ORIENTED, TRANSFERS WITH MOD ASSIST, GB WALKER, NEEDS LIFTING ASSIST, TAKING FOOD AND FLUIDS WELL, VOIDS PER URINAL/TOILET, COMPLAINS OF LOW BACK PAIN, LIDOCAINE PATCH APPLIED, PT ENCOURAGED TO DRINK FLUIDS, PROPELS SELF IN W/C TO DININGROOM AND BACK, PARTICIPATED IN ALL THERAPIES, HOURLY ROUNDING COMPLETED, ASSESSMENT COMPLETE, WILL CONTINUE TO MONITOR.
[2019-03-23 19:38] VITALS: BP 109/56
--- NOTE | 2019-03-24 05:43 | NUR ---
ASSUMED PT CARE AT 1930. PT ALERT AND ORIENTED X4. HX OF CVA WITH LEFT SIDED WEAKNESS. PT ALREADY IN BED AT SHIFT CHANGE. DNEIES PAIN. NO STOOL THIS SHIFT. USES URINAL, STAFF EMPTIES. TAKES PILLS WHOLE ONE AT A TIME WITH WATER. USES CALL LIGHT APPROPRIATELY. CALL LIGHT AND FREQUENTLY USED ITEMS WITHIN REACH. HOURLY ROUNDING IN PROGRESS, WILL CONTINUE TO MONITOR.
[2019-03-24 07:00] VITALS: BP 106/59
[2019-03-24 11:32] LABS: CALCIUM 9.2 mg/dL (8.5-10.1); CREATININE 0.7 mg/dL (0.6-1.3); MAGNESIUM 2.4 mg/dL (1.8-2.4); POTASSIUM 4.1 mmol/L (3.5-5.1)
--- NOTE | 2019-03-24 13:46 | NUR ---
BRE and Dr Carreon met with pt and pt son to review team conference summary and plan for one more week of therapies on inpt rehab unit with possibility of dc next Saturday 03/31. To be determined if possible/safe for pt to dc home with pt son, SW explained recommendation of ample family training sessions with pt son to provide ideas as to whether or not pt son felt that he would be able to provide pt the care needed at dc. Otherwise, pt and pt family may consider LTC as was discussed with pt and pt son last week. SW to continue to follow to assist with safe dc planning.
--- NOTE | 2019-03-24 16:11 | NUR ---
ASSUMED CARE AT 0730. ALERT ORIENTED PLEASANT COOPERATIVE. HX OF CVA L SIDE WEAKNESS. TRANSFERS TODAY MAX ASSISTOF 2 PT. IS RETROPULSIVE AND IS SITTING IN W/C. DIFFICULT TO GET UP TO STAND AND USE WALKER FOR AMBULATION. FEEDS SELF WITH SET UP. TAKES MEDS 1 AT A TIME WITH WATER WITHOUT DIFFICULTY. USES CALL LIGHT APPROPRIATELY FOR ASSISTANCE. PARTICIPATING IN THERAPIES. MEDICATED WITH PRN TRAMADOL FOR C/O BACK PAIN THIS AFTERNOON. SON HERE VISITING AT LUNCH TIME.
[2019-03-24 20:00] VITALS: BP 119/55
--- NOTE | 2019-03-24 23:09 | NUR ---
ASSUMED CARE AT 1930. PATIENT RESTING IN BED. VOIDS PER URINAL, NURSING EMPTIES. TAKES PILLS WHOLE WITH WATER ONE AT A TIME. TURNS SELF. LIDO PATCH REMOVED AT HS. DENIES PAIN. HOURLY ROUNDS CONTINUE. BED ALARM ON. CALL LITE IN REACH.
--- NOTE | 2019-03-25 05:26 | NUR ---
SLEPT MOST OF THE NIGHT EXCEPT TO VOID PER URINAL. TURNS SELF. NO C/O PAIN. HOURLY ROUNDS CONTINUE. BED ALARM ON. CALL LITE IN REACH.
[2019-03-25 08:15] VITALS: BP 126/72
[2019-03-25 08:55] VITALS: BP 126/72
[2019-03-25 10:45] VITALS: BP 124/62
[2019-03-25 12:25] LABS: CREATININE 0.8 mg/dL (0.6-1.3); POTASSIUM 3.8 mmol/L (3.5-5.1)
--- NOTE | 2019-03-25 14:18 | NUR ---
PT HAD N/V EARLIER IN THE SHIFT WITH HYPOTENSION, TEAM AND DR LOPEZ NOTIFIED, ORDERS PLACED TO MANAGE CARE. CHELY WITH SPEECH JUST CAME FROM PT ROOM AND STATED THAT THE PT HAD MARKEDLY SLURRED SPEECH FROM PREVIOUS DAYS AND IT WAS MUCH WORSE THAN THIS MORNING. DR MIGUEL NOTIFIED AND OBTAINED VERBAL ORDER TO CHANGE BOLUS TO 1000ML AND PROVIDE AT THIS TIME AND TO NOTIFY IF SYMPTOMS DO NOT SUBSIDE AND IF BP DOES NOT IMPROVE. WILL CONTINUE TO MONITOR AND ASSESS
[2019-03-25 16:15] VITALS: BP 130/65
[2019-03-25 20:22] VITALS: BP 131/65
--- NOTE | 2019-03-25 23:12 | NUR ---
ASSUMED CARE AT 1930. PATIENT RESTING IN BED. VOIDS PER URINAL. C/O NEEDING BM. PLACED ON BEDPAN DUE TO PROFOUND WEAKNESS WITH TRANSFERS. NO BM YET. TAKES PILLS WHOLE WITH WATER. TURNS SELF IN BED. BLOOD PRESSURE IMPROVED FROM DAY SHIFT. NO C/O N/V. SPEECH AT BASELINE. NO C/O PAIN. HOURLY ROUNDS CONTINUE. BED ALARM ON. CALL LITE IN REACH.
--- NOTE | 2019-03-26 06:07 | NUR ---
SLEPT MOST OF THE NIGHT EXCEPT TO VOID. TURNS SELF. ATTEMPTING BM PER BED GEE. NO C/O PAIN. HOURLY ROUNDS CONTINUE. BED ALARM ON. CALL LITE IN REACH.
[2019-03-26 09:02] VITALS: BP 118/52
--- NOTE | 2019-03-26 13:28 | NUR ---
ASSUMED CARE AT 0730. ALERT ORIENTED PLEASANT COOPERATIVE. HX OF CVA AND L SIDE WEAKNESS. PARTICIPATING IN THERAPIES O.T. THIS A.M. TRANSFERS MUCH BETTER THIS MORNING. G BELT WALKER MIN ASSISTANCE FROM CHAIR TO STAND WITH WALKER. NO NAUSEA OR EMESIS. TOOK MEDS WITHOUT DIFFICULTY. MEDICATED X 1 WITH TRAMADOL FOR BACK PAIN. USES CALL LIGHT APPROPRIATELY FOR ASSISTANCE. VOIDED IN TOILET WITH O.T. AND HAD A BM ALSO THIS A.M. TO FOR MEALS. APPETITE GOOD.
--- NOTE | 2019-03-26 15:09 | NUR ---
SW called and spoke with pt son about family training and he said he would probably be able to be here to complete more family training on Friday at 1 pm. SW also mentioned that therapy recommending one more person available to assist with pt going up and down stairs. SW to continue to follow to assist with safe dc planning.
[2019-03-26 20:23] VITALS: BP 140/73
[2019-03-26 20:30] VITALS: BP 140/73
--- NOTE | 2019-03-27 05:26 | NUR ---
PT ALERT AND ORIENTED. VSS ON RA. VOIDED BY URINALS. MEDS GIVEN PER EMAR. PT SLEPT MOST OF SHIFT. CALLS OUT FOR URINALS TO BR EMPTIED AFTER EACH VOID. PT PLEASEANT AND APPROPRIATE. FALL PRECAUTION IN PLACE. CALL LIGHT WITHIN REACH. WILL CONTINUE TO MONITOR.
[2019-03-27 07:54] VITALS: BP 135/78
[2019-03-27 20:19] VITALS: BP 120/63
--- NOTE | 2019-03-28 05:20 | NUR ---
PT ALERT AND ORIENTED. VSS ON RA. PT SLEPT WELL THIS SHIFT. PT DID NOT GET OUT OF BED THIS SHIFT. PT USES URINALS TO VOID. NO BM NOTED THIS SHIFT. PT DENIES N/V/P THIS SHIFT. MEDS GIVEN PER EMAR. CALL LIGHT WITHIN REACH. HOURLY ROUNDINGS MADE. WILL CONTINUE TO MONITOR.
[2019-03-28 07:48] VITALS: BP 145/67
--- NOTE | 2019-03-28 17:41 | NUR ---
PATIENT UP IN CHAIR. PATIENT IS UP WITH MINIMAL ASSIST WITH WALKER AND GAIT BELT. PATIENT IS SLOW TO TRANSFER BUT DOES WELL. PATIENT HAS COMPLAINTS OF BACK PAIN WITH ADEQUATE RELIEF PROVIDED WITH MEDICATION. PATIENT DENIES ANY NEEDS AT THIS TIME. CALL LIGHT WITHIN REACH. WILL CONTINUE TO MONITOR.
[2019-03-28 19:10] VITALS: BP 113/60
--- NOTE | 2019-03-28 20:20 | NUR ---
AT SHIFT CHANGE SITTING UP IN RECLINER WATCHING TV. WAS ABLE TO SIT UP FROM RECLINER AND WALKER TO THE TOILET WITH CGA, GAITBELT, WALKER. ASSISTED PATIENT WITH PULLING PANTS DOWN. PATIENT VOIDED. PATIENT WAS UNABLE TO STAND UP FROM THE STOOL RISER. TRANSFERRED PATIENT FROM STOOL RISER TO THE WHEELCHAIR WITH MAX ASSIST, OF TWO, GAITBELT, LIFTING. TRANSFERRED FROM WHEELCHAIR TO BED WITH MAX ASSIST OF 3, GAITBELT, LIFTING. WHEN BROUGHT PATIENT HIS MEDICATIONS HE HAD ALREADY FALLEN TO SLEEP. AWAKENED EASILY THEN TOOK HIS MEDICATIONS WHOLE ONE AT A TIME WITH WATER. CALL LIGHT WITHIN REACH.
--- NOTE | 2019-03-29 06:19 | NUR ---
RESTED SOUNDLY. USED URINAL X ONE. HOURLY ROUNDING IN PROGRESS.
[2019-03-29 07:59] VITALS: BP 156/88
--- NOTE | 2019-03-29 13:15 | NUR ---
ASSUMED CARE AT 0800. ALERT ORIENTED PLEASANT COOPERATIVE. HX OF CVA L SIDE WEAKNESS. TRANSFERRED FROM CHAIR TO STANDING POSITION USING GAIT BELT WALKER WITH MOD ASSIST. AMBULATED SLOW GAIT TO BR TO VOID NO BM C/O NAUSEA GIVEN ZOFRAN ODT. NO EMESIS BUT STATES HE ISNT HUNGRY AT LUNCH. AFTER USING TOILET HE WAS HAVING DIFFICULTY ARISING FROM STOOL. P.T. WAS ABLE TO GET HIM TO [place] AND AMBULATE WITH WALKER AFTER A BRIEF REST. HE HAD A SMALL BM LAST NIGHT AND A LARGE BM ON FRIDAY. STATES HE HAS BEEN PASSING GAS. SENNA 2 TABS GIVEN BEFORE LUNCH. USES CALL LIGHT APPROPRIATELY FOR ASSISTANCE.
--- NOTE | 2019-03-29 15:26 | NUR ---
PT. NEEDED MOD ASSIST FROM SIT TO STAND FROM W/C TO BED HE WAS ABLE TO TAKE STEPS WITH WALKER AND SIT ON BED AND GET BOTH FEET INTO BED. STATES HE IS AFRAID OF FALLING EXPLAINED TO PT. HE HAS GREATER CHANCE OF FALLING BY NOT WORKING WITH STAFF AND HELPING WITH TRANSFERS. PT. TURNED HIMSELF TO RT. SIDE. CALL LIGHT AND NEEDS PLACED CONVENIENTLY FOR PT.
--- NOTE | 2019-03-29 16:37 | NUR ---
Pt son participated in family training today. Pt son planning for pt to return home on Saturday 03/31 with services. SW to continue to follow to assist with safe dc planning and finalizing safe dc plan for Saturday 03/31.
[2019-03-29 16:53] VITALS: BP 154/72
--- NOTE | 2019-03-29 17:43 | NUR ---
PTS. APPETITE POOR TODAY BUT DRANK ENSURE ENLIVE EACH MEAL. NO EMESIS BUT STATE HE ISNT HUNGRY.
[2019-03-29 20:00] VITALS: BP 135/62
--- NOTE | 2019-03-30 05:20 | NUR ---
ASSUMED CARES AT 1920. ALERT AND ORIENTED. PLEASANT. DENIED ANY PAIN OR FURTHER NAUSEA. USED URINAL AND RN EMPTIED. DID NOT GET UP OVERNIGHT. SLEPT OFF AND ON. CALL LIGHT IN REACH AND BED ALARM ON.
[2019-03-30 07:30] VITALS: BP 160/92
--- NOTE | 2019-03-30 10:56 | NUR ---
ASSUMED CARE AT 0730. ALERT ORIENTED PLEASANT COOPERATIVE BUT AFFECT SEEMS FLAT. HX OF CVA L SIDE WEAKNESS. PT. IS EATING A GOOD BREAKFAST THIS A.M. HAS BEEN ON TOILET X 2 GAVE A BISACODYL SUPPOSITORY WITH ONLY SMALL RESULTS FORMED STOOL. DID C/O NAUSEA AFTER BM ZOFRAN 4 MG. GIVEN. TRANSFERS ARE BETTER TODAY MIN MOD ASSIST G BELT WALKER AND A FEW STEPS FROM TOILET TO W/C. TAKES MEDS WITHOUT DIFFICULTY 1 AT A TIME. USES CALL LIGHT APPROPRIATELY.
[2019-03-30 19:54] VITALS: BP 119/64
--- NOTE | 2019-03-31 05:19 | NUR ---
ASSUMED CARE AT 1920. ALERT AND ORIENTED. PLEASANT. DENIED ANY NEED FOR ANTI NAUSEA MED. USED URINAL OVERNIGHT AND NURSING EMPTIED. SLEPT WELL. CALL LIGHT IN REACH. BED ALARM ON.
[2019-03-31 10:37] VITALS: BP 116/75
--- NOTE | 2019-03-31 16:54 | NUR ---
Team conference held and team discussed pt to possibly dc today after one more family training session with pt son and pt managing a full flight of stairs at once. When SW and Dr Carreon met with pt to review this plan, pt expressed inability to eat much of his lunch and intermitent nausea. Dr Carreon was concerned about pt not able to eat, nausea and constipation. Dr Carreon did not write dc orders as planned due to pt expression of above issues. Therapy worked with pt and pt son on stairs and pt did really well with stairs however. Then pt was feeling better this afternoon, possible for pt to be able to dc home tomorrow, , 04/01. SW to continue to follow to assist with finalizing safe dc plan for pt to dc home with son's care. services to follow as well.
--- NOTE | 2019-03-31 17:49 | NUR ---
PATIENT WAS OFFERED ZOFRAN FOR NAUSEA AND DECLINED. ONE SM BM TODAY. MIRLAX ORDERED AND STARTED TODAY. DENIES PAIN OR DISCOMFORT. NO SIGN OF DISTRESS.
[2019-03-31 20:09] VITALS: BP 114/94
--- NOTE | 2019-04-01 00:31 | NUR ---
ASSUMED CARE 2 1919-03/31-FRI.APPEARS SLEEPING IN BED W/ HOB UP.URINAL W/IN REACH.AWAKENED @ 2029 FOR HS MEDS.TAKES ONE PILL @ A TIME W/ CUP OF H20. WANTS ONLY SIDERAILS X3 UP.WEARS PULL UPS.SPEECH-SLURRED.ON HOURLY ROUNDS. CARE COMPANION DOING ODD HOUR ROUNDS.
--- NOTE | 2019-04-01 05:26 | NUR ---
SLEEPING SINCE 1919 & SLEPT GOOD ALL NIGHT.REFUSED HS SNACK.WEARS PULL UPS. USED URINAL X2.NURSE EMPTIES URINAL @ NIGHT.ENCOURAGE FLUIDS 2L/DAY.NO NAUSEA DURING NIGHT.
[2019-04-01 08:00] VITALS: BP 140/82
[2019-04-01] MEDS ORDERED: LISINOPRIL5 MG PO (14:01)
[2019-04-01 14:09] VITALS: BP 140/82
[2019-04-01 14:28] VITALS: BP 140/82
[2019-04-01] MEDS ORDERED: ZOFRAN ODT4 MG DISSOLVE (14:39)
--- NOTE | 2019-04-01 14:51 | NUR ---
Pt to dc home today with HH services to follow. BRE spoke with both pt and pt son about safe dc plan and pt ready to dc today medically as well. Pt/family preference for [facility] HH services; BRE spoke with intake at [facility] and faxed final orders and med list. Pt son to provide pt ride home.
[2019-04-01 16:10] VITALS: BP 140/82
--- NOTE | 2019-04-01 16:31 | NUR ---
ASSUMMED CARE OF PT AT 0730, PT ALERT AND ORIENTED, FORGETFUL AT TIMES, PT TRANSFERS WITH ASSIST OF 1 GB WALKER CUEING, AMBULATES TO BATHROOM, LARGE BM X 1 THIS SHIFT, COMPLAINS OF BACK PAIN, LIDOCAINE PATCH APPLIED, TAKING FOOD AND FLUIDS WELL, PARTICIPATED IN ALL THERAPIES, HOURLY ROUNDING COMPLETED, ASSESSMENT COMPLETE, ORDERS OBTAINED FOR DISCHARGE, PT AND SON EDUCATED ON MEDICATIONS, FOLLOW UP APPTS, WHEN TO CALL PHYSICIAN, HOME HEALTH, ACTIVITY, DIET, QUESTIONS ANSWERED, SCRIPTS CALLED TO PHARMACY, DISCHARGED PER W/C WITH BELONIGNING TO MAIN ENTRANCE.
== END 2019-04-01 16:15 | disposition home health service (06) | DRG 56 ==
LOC: M.REH 18:14 → M.TBA-ER 19:56 → M.REH 20:10
PROVIDERS: Internal Medicine; Registered Nurse; ADMIT Physical Medicine & Rehabilitation
DX: I69.354 Hemiplegia and hemiparesis following cerebral infarction affecting left non-dominant side (principal); I63.9 Cerebral infarction, unspecified; G93.40 Encephalopathy, unspecified; M47.812 Spondylosis without myelopathy or radiculopathy, cervical region; I10 Essential (primary) hypertension; E11.9 Type 2 diabetes mellitus without complications; E78.5 Hyperlipidemia, unspecified; R47.1 Dysarthria and anarthria; R13.10 Dysphagia, unspecified; M47.892 Other spondylosis, cervical region; E87.6 Hypokalemia; G31.84 Mild cognitive impairment of uncertain or unknown etiology; E86.0 Dehydration; R00.1 Bradycardia, unspecified; R26.9 Unspecified abnormalities of gait and mobility; K59.00 Constipation, unspecified; Z87.440 Personal history of urinary (tract) infections; Z79.82 Long term (current) use of aspirin; Z79.899 Other long term (current) drug therapy; I69.922 Dysarthria following unspecified cerebrovascular disease; I69.991 Dysphagia following unspecified cerebrovascular disease

== ENCOUNTER 2019-04-12 14:10 | Inpatient (IN) | payer OTHER ==
[~2019-04-12] VITALS: Ht 167.6 cm; Wt 56.7 kg
--- NOTE | ~2019-04-12 | CON ---
[address] [address] CONSULTATION Name: PLACIDO IVORY Room: [address] IN M.R.#: [id number] Admission: 04/12/19 Attend Phys: Shannon Beard MD Discharge: Date of : 33 Report #: [id number] THIS REPORT FOR: //name// CC: Monster Beard DICTATED BY: Belkys Brower [facility] DATE OF SERVICE: 04/15/2019 Please note at the time of this dictation, the patient was seen and physically examined by myself. REASON FOR CONSULTATION: Diarrhea and abnormal CT of the rectal wall thickening. HISTORY OF PRESENT ILLNESS: This 83-year-old male presented to the Emergency Room with increased dizziness and weakness, which he has been noticing for the last couple of days. He has also been having diarrhea for the last 3 days as well. He is really not complaining of any abdominal pain at the present time. He states he normally has issues with constipation that will last about 4 days and then he will go with his diarrhea. He has not noted any bright red blood or any melanotic stool. The patient recently was noted to have had a stroke back in 2017. The patient states he had a colonoscopy, but it was many years ago. He does not recall where or if there were any findings. ALLERGIES: No known drug allergies. MEDICATIONS: From home; Lipitor, senna and aspirin. 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 He has had pneumonia, status post prostate cancer with radiation, history of TIAs, history of constipation, cervical spondylosis, seizures, peripheral neuropathy, seasonal allergies, overactive bladder. PAST SURGICAL HISTORY: Negative. FAMILY HISTORY: Negative for any GI or female cancers. SOCIAL HISTORY: Denies any alcohol, tobacco or illegal drug use. REVIEW OF SYSTEMS: Twelve-point review of systems is essentially negative except what [place] [address] CONSULTATION Name: PLACIDO IVORY Room: [address] IN ..#: [id number] Admission: 04/12/19 Attend Phys: Shannon Beard MD Discharge: Date of : 33 Report #: [id number] PHYSICAL EXAMINATION: VITAL SIGNS: Temperature 36.7, pulse 73, respirations 16, blood pressure 126/72. HEART: Regular rate and rhythm. LUNGS: Clear. ABDOMEN: Soft, positive bowel sounds in all 4 quadrants with no tenderness noted to palpation. LABORATORY DATA: Hemoglobin is 11.8, white count is 6.2, platelets 226. GFR is 107. CT scan showed diverticulosis and rectal wall circumferential thickening noted. IMPRESSION: 1. Diarrhea. 2. Abnormal CT. Rectal wall thickening. 3. History of constipation. 4. Weakness. PLAN: 1. Colonoscopy tomorrow with Dr. Walters. 2. The patient will need a better bowel regimen prior to discharge to prevent further recurrences of this. 3. Further recommendations to be made once the procedure has been performed. Thank you for allowing us to participate in this patient's care. Please do not hesitate to call with any questions in regard to this consult. By: [id number] Kingston MD /nt
--- NOTE | ~2019-04-12 | PROC ---
[address] [address] PROCEDURE REPORT Name: PLACIDO IVORY Room: [address] IN M.R.#: [id number] Admission: 04/12/19 Attend Phys: Shannon Beard MD Discharge: 04/19/19 Date of : 33 Report #: [id number] THIS REPORT FOR: //name// For GI report, please see the Provation report in Perceptive 7 content. By: [id number] Records Staff MATT /AMARA
[~2019-04-12 14:10] MED LIST changes: +LISINOPRIL5 MG PO; +ZOFRAN ODT4 MG DISSOLVE
[2019-04-12 14:35] LABS: ABSOLUTE BASOPHILS 0.1 thou/uL (0.0-0.2); ABSOLUTE EOSINOPHILS 0.1 thou/uL (0.0-0.7); ABSOLUTE LYMPHOCYTES 1.3 thou/uL (0.8-5.3); ABSOLUTE MONOCYTES 0.7 thou/uL (0.0-1.2); ABSOLUTE NEUTROPHILS 5.7 thou/uL (1.6-8.1); BASOPHILS 0.7 %; EOSINOPHILS 0.7 %; HEMATOCRIT 37.3 % (42.0-52.0); HEMOGLOBIN 12.4 gm/dL (14.0-18.0); LYMPHOCYTES 16.7 %; MCHC 33.2 g/dL (28.0-37.0); MCV 87.3 fL (80.0-100.0); MONOCYTES 9.4 %; MPV 7.8 fl. (7.2-11.1); NUCLEATED RBCS 0 /100WBC; PLATELET COUNT* 276 thou/uL (150-400); POLYS 72.5 %; RBC 4.27 mil/uL (4.50-6.00); RDW-CV 15.2 % (10.5-14.5); WBC 7.9 thou/uL (4.0-11.0)
[2019-04-12 14:41] LABS: ANION GAP 8 mmol/L (7-16); BUN 19 mg/dL (7-18); CALCIUM 8.5 mg/dL (8.5-10.1); CHLORIDE 104 mmol/L (98-107); CO2 31 mmol/L (21-32); CREATININE 1.1 mg/dL (0.6-1.3); GLUCOSE 109 mg/dL (70-99); POTASSIUM 3.4 mmol/L (3.5-5.1); SODIUM 143 mmol/L (136-145)
[2019-04-12 14:51] LABS: ALBUMIN 3.2 g/dL (3.4-5.0); ALKALINE PHOSPHATASE 86 U/L (46-116); SGOT 15 U/L (15-37); SGPT 24 U/L (30-65); TOTAL BILIRUBIN 0.3 mg/dL (<0.1-1.0); TOTAL PROTEIN 6.8 g/dL (6.4-8.2); TROPONIN-I LEVEL <0.06 ng/mL (<0.06)
[2019-04-12 14:54] LABS: APTT 29.8 Seconds (25.0-31.3); PROTIME 10.6 Seconds (9.20-11.50)
[2019-04-12 16:29] LABS: URINE BILIRUBIN NEGATIVE (Negative); URINE BLOOD NEGATIVE (Negative); URINE CLARITY CLEAR; URINE COLOR YELLOW; URINE GLUCOSE-RANDOM NEGATIVE (Negative); URINE KETONES NEGATIVE (Negative); URINE LEUKOCYTES-REFLEX NEGATIVE (Negative); URINE NITRITE-REFLEX NEGATIVE (Negative); URINE PROTEIN NEGATIVE (Negative); URINE SPECIFIC GRAVITY <= 1.005 (1.005-1.030); URINE UROBILINOGEN 0.2 E.U./dl (0.2-1.0)
[2019-04-12 16:37] LABS: AMP/METHAMP Negative (Negative); BARBITURATES Negative (Negative); BENZODIAZEPINES Negative (Negative); COCAINE Negative (Negative); METHADONE Negative (Negative); OPIATES Negative (Negative); PCP Negative (Negative); THC Negative (Negative)
[2019-04-12 22:14] VITALS: BP 109/57
[2019-04-12 22:15] VITALS: BP 132/67
[2019-04-13 04:00] VITALS: BP 126/63
[2019-04-13 05:15] LABS: HEMATOCRIT 33.8 % (42.0-52.0); HEMOGLOBIN 11.4 gm/dL (14.0-18.0); MCH 29.3 pg (26.0-34.0); MCHC 33.8 g/dL (28.0-37.0); MCV 86.9 fL (80.0-100.0); MPV 8.1 fl. (7.2-11.1); RBC 3.89 mil/uL (4.50-6.00); RDW-CV 15.6 % (10.5-14.5); WBC 6.6 thou/uL (4.0-11.0)
[2019-04-13 05:29] LABS: CREATININE 0.7 mg/dL (0.6-1.3); POTASSIUM 3.4 mmol/L (3.5-5.1)
[2019-04-13 08:00] VITALS: BP 142/80
--- NOTE | 2019-04-13 08:30 | NUR ---
PT IS ABLE TO COMMUNICATE HIS NEEDS TO STAFF EFFECTIVELY. HE HAS DENIED THE NEED FOR PAIN MEDICATION UP TO THIS TIME. HE WAS ADMITTED TO ROOM 218 DURING UTILITY WORKER FORGE TODAY; VSS, A+OX4, SR+PVCs ON TELEMETRY. POSSIBLE MRI OF THE HEAD LATER TODAY. REQUESTED RETRIEVAL OF MED RECORDS FROM [facility].
--- NOTE | 2019-04-13 11:27 | EKG ---
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: : 1935 Requested By: Tom Cervantes Order Number: [id number] MD: Maxim Lopez Measurements Intervals [place] Rate: 57 P: 33 VA: 200 QRS: -22 QRSD: 104 T: 47 QT: 403 QTc: 393 Interpretive Statements Sinus rhythm Ventricular trigeminy Low voltage, precordial leads Probable left ventricular hypertrophy Baseline wander in lead(s) V2 Compared to ECG 03/11/2019 15:18:50 Left-axis deviation no longer present ST (T wave) deviation no longer present Electronically Signed On 04-13-2019 11:26:50 CDT by Maxim Lopez [email or web address] <ELECTRONICALLY SIGNED> By: Maxim Lopez MD, FAC 04/13/19 1126 [id number] [id number] Maxim Lopez MD, [facility] /EPI
[2019-04-13 11:30] VITALS: BP 141/67
--- NOTE | 2019-04-13 15:23 | NUR ---
Pt is A&O. Resides at home with . Known to this CM from previous hospital stay. Pt recently dc from acute rehab on 04/01/19, per son, Pt was doing ok at home, up until a few days ago, Pt began exhibiting "stroke like" symptons per son. Pt has a RW and WC at home. Pt is current with [facility] HH. Hx of skilled at [facility]. Discussed disposition, Pt wants to return to [facility] skilled at dc. DC planner intern to fax initial referral. Informed Pt and family that Pt may be in his copay days and required to prepay for services. CM to updated Pt/family of cost once known. Anticipate dc within the next few days. Following.
--- NOTE | 2019-04-13 15:24 | NUR ---
D/C MANAGER INSURANCE INFORMED OF THE NEED TO FAX [facility] SKILLED REFERRAL. D/C MANAGER INSURANCE FAXED ADONIS'S CLINICAL INFO, AND OT NOTE TO [facility]. AT THIS TIME PATIENT HAS NOT BEEN SEEN BY PT. D/C MANAGER INSURANCE WILL FAX PT NOTE WHEN AVAILABLE. CM WILL REMAIN AVIALABLE TO ASSIST AND FOLLOW NEEDED.
[2019-04-13 16:10] VITALS: BP 117/48
--- NOTE | 2019-04-13 17:55 | NUR ---
RECEIVED REPORT FROM NORMAN JONES. ASSUMED CARE OF PT AROUND 0730. PT A&O X4, FORGETFUL AT TIMES. RIGHT SIDE WEAKNESS AND SPEECH SLIGHTLY SLURRED FROM PAST H/O CVA. VSS. WORKPLACE RELATIONS ADVISER IN PLACE TRACING SR WITH PVC'S WITH NO CHANGES THIS SHIFT. AM ASSESSMENT AND VITALS COMPLETED CHARTED. IV TO RIGHT FA INTACT AND INFUSING IVF. PT WITH POOR APPETITE THIS SHIFT. FAMILY AT BEDSIDE THIS AFTERNOON. PT INCONTINENT OF BOWEL THIS AFTERNOON - PT CLEANED. PT USING URINAL TO VOID, URINE LIGHT YELLOW. PT COMPLETED MRI'S THIS AM, SEE RESULTS. PT REFUSED TO WORK WITH THERAPIES THIS MORNING, BUT WAS ABLE TO GET ONTO BEDSIDE COMMODE AND UP TO BEDSIDE CHAIR WITH TELE STAFF LATER IN SHIFT. PT CURRENTLY RESTING IN BED WATCHING TV. CALL LIGHT IS WITHIN REACH. FALL PRECAUTIONS ARE IN PLACE. HOURLY ROUNDING PERFORMED. WCTM FOR DURATION OF SHIFT.
[2019-04-13 20:39] VITALS: BP 139/83
[2019-04-14] VITALS: BP 136/73
[2019-04-14 04:00] VITALS: BP 140/77
--- NOTE | 2019-04-14 05:24 | NUR ---
PT IS ABLE TO COMMUNICATE HIS NEEDS TO STAFF EFFECTIVELY. HE HAS DENIED THE NEED FOR PAIN MEDICATION UP TO THIS TIME.
[2019-04-14 05:27] LABS: CALCIUM 8.3 mg/dL (8.5-10.1); CREATININE 0.7 mg/dL (0.6-1.3); POTASSIUM 3.4 mmol/L (3.5-5.1)
[2019-04-14 08:00] VITALS: BP 127/63
[2019-04-14 11:30] VITALS: BP 118/51
--- NOTE | 2019-04-14 13:24 | NUR ---
ASSUMED CARE OF PATIENT THIS AM AT 0730. PATIENT IS ALERT AND ORIENTED X 4. HE DENIED PAIN THIS AM. HE DOES C/O NAUSEA AND DIZZINESS. PATIENT MEDICATED FOR NAUSEA X 1 WITH GOOD RESULTS. PATIENT ASSISTED UP TO THE CHAIR AND WITH ADLS THROUGHOUT THE DAY. TELE SHOWS SR TO SB WITH 1DAVB. PLANS FOR POSSIBLE DISCHARGE TOMMORROW.
[2019-04-14 15:55] VITALS: BP 117/56
[2019-04-14 20:00] VITALS: BP 129/57
[2019-04-15] VITALS: BP 121/68
[2019-04-15 04:11] VITALS: BP 134/66
[2019-04-15 04:16] LABS: HEMATOCRIT 35.5 % (42.0-52.0); HEMOGLOBIN 11.8 gm/dL (14.0-18.0); MCH 28.7 pg (26.0-34.0); MCHC 33.2 g/dL (28.0-37.0); MCV 86.4 fL (80.0-100.0); MPV 8.1 fl. (7.2-11.1); RBC 4.11 mil/uL (4.50-6.00); RDW-CV 15.2 % (10.5-14.5); WBC 6.2 thou/uL (4.0-11.0)
[2019-04-15 04:46] LABS: ALBUMIN 2.8 g/dL (3.4-5.0); CALCIUM 8.9 mg/dL (8.5-10.1); CREATININE 0.7 mg/dL (0.6-1.3); MAGNESIUM 1.9 mg/dL (1.8-2.4); POTASSIUM 3.9 mmol/L (3.5-5.1); TOTAL BILIRUBIN 0.3 mg/dL (<0.1-1.0); TOTAL PROTEIN 6.2 g/dL (6.4-8.2)
--- NOTE | 2019-04-15 05:43 | NUR ---
PATIENT PROGRESSING TOWARDS GOALS: VSS ON ROOM AIR. PATIENT DENIES NAUSEA, PAIN AND DISCOMFORT. DENIES DIZZINESS BUT CONTINUES TO HAVE WEAKNESS, BUT PATIENT STATES THIS IS HIS BASELINE DUE TO RESIDUAL OF PREVIOUS CVA'S. POSSIBLE DISCHARGE TODAY AFTER EEG. CALL LIGHT WITHIN REACH
[2019-04-15 08:00] VITALS: BP 126/72
--- NOTE | 2019-04-15 10:23 | NUR ---
Spoke with EYAD Cruz to be consulted today. Pt should be ready to dc tomorrow. CM updated Neeta at [facility], they continue to await insurance auth. Following.
[2019-04-15 11:58] VITALS: BP 118/63
--- NOTE | 2019-04-15 12:22 | NUR ---
Insurance requesting updated OT notes, informed clinical rehabilitation aide. CM to fax to [facility] once available.
[2019-04-15 15:47] VITALS: BP 128/92
--- NOTE | 2019-04-15 15:52 | NUR ---
PATINET RESTING IN BED. UP WITH MAX ASSIST X2, WALKER, AND GAIT BELT. AOX4. HE IS TO HAVE A COLONOSCOPY TOMORROW, ORDERS RECEIVED. VITAL SIGNS STABLE AND PATINET IN NOAPPARENT ISTRESS AT THIS TIME
[2019-04-15 19:40] VITALS: BP 124/57
[2019-04-16] VITALS (8 sets, daily range): BP systolic 122–153; BP diastolic 46–81
--- NOTE | 2019-04-16 04:27 | NUR ---
PATIENT PARTIALLY PROGRESSING TOWARDS GOALS FOR COMPLETION OF BOWEL PREP: PATIENT FINISHED THE MIRALAX/GATORADE PREP AND HAS HAD NUMEROUS LIQUID, SEMI-CLEAR STOOLS. PATIENT INCONTINENT OF MOST STOOLS. UNABLE TO TRANSFER TO BEDSIDE COMMODE THIS SHIFT DUE TO WEAKNESS/FATIGUE/DIZZINESS. PATIENT ALSO NAUSEOUS WITH BOWEL PREP AND HAD ONE EPISODE OF EMESIS. MEDICATED PER EMAR X1 WITH RELIEF. BARRIER CREAM APPLIED TO REDNESS ON BOTTOM. REDNESS REMAINS BLANCHABLE. CALL LIGHT WITHIN REACH
--- NOTE | 2019-04-16 15:16 | NUR ---
Continue to await insurance auth. [facility] can accept Pt over the weekend. [phone] f:[phone]
--- NOTE | 2019-04-16 18:53 | NUR ---
PATIENT NOT RESTING IN BED. UP WITH ASSIST X2 AND WALKER. COLONOSCOPY COMPLETED. REGULAR DIET ORDER RECEIVED. PATIENT AWAITING DISCHARGE TO SNF WHEN INSURANCE AUTH. MED SURG STATUS.
[2019-04-17] VITALS: BP 136/75
--- NOTE | 2019-04-17 05:02 | NUR ---
PATIENT PROGRESSING TOWARDS GOALS: VSS ON ROOM AIR. PATIENT DENIES PAIN AND DISCOMFORT. NO CONCERNS THIS SHIFT. ANTICIPATING DISCHARGE WITH INSURANCE AUTH. CALL LIGHT WITHIN REACH.
[2019-04-17 08:00] VITALS: BP 158/68
[2019-04-17 12:04] LABS: ABSOLUTE LYMPHOCYTES 1.3 thou/uL (0.8-5.3); ABSOLUTE MONOCYTES 0.6 thou/uL (0.0-1.2); ABSOLUTE NEUTROPHILS 5.4 thou/uL (1.6-8.1); BASOPHILS 0.6 %; EOSINOPHILS 0.6 %; HEMATOCRIT 38.5 % (42.0-52.0); HEMOGLOBIN 12.8 gm/dL (14.0-18.0); MCH 28.9 pg (26.0-34.0); MCHC 33.3 g/dL (28.0-37.0); MCV 86.7 fL (80.0-100.0); MONOCYTES 8.1 %; MPV 8.1 fl. (7.2-11.1); NUCLEATED RBCS 0 /100WBC; PLATELET COUNT* 233 thou/uL (150-400); POLYS 72.7 %; RBC 4.44 mil/uL (4.50-6.00); RDW-CV 15.4 % (10.5-14.5); WBC 7.5 thou/uL (4.0-11.0)
[2019-04-17 12:13] LABS: CALCIUM 8.7 mg/dL (8.5-10.1); CREATININE 0.9 mg/dL (0.6-1.3); POTASSIUM 3.5 mmol/L (3.5-5.1)
--- NOTE | 2019-04-17 13:15 | NUR ---
Following for d/c planning needs. Spoke with recreation coordinator at [place] and she has not received insurance authorization.
--- NOTE | 2019-04-17 15:06 | NUR ---
PATINET RESTING IN BED. VITAL SIGNS STABLE AND PATINET IN NO APPARNET SIGNS OF DISTRESS. ERPORTED NAUSEA THIS MORNING, WELL TREATED WITH PO ZOFRAN. HOURLY ROUNDING COMPLETD FOR PATIENT SAFETY. UP WITH ASSSIST X2, WALKER, AND GAIT BELT.
[2019-04-17 16:00] VITALS: BP 101/53
[2019-04-17 20:13] VITALS: BP 99/53
[2019-04-18 00:07] VITALS: BP 130/67
[2019-04-18 05:53] LABS: CALCIUM 8.6 mg/dL (8.5-10.1); CREATININE 0.8 mg/dL (0.6-1.3); POTASSIUM 3.8 mmol/L (3.5-5.1)
--- NOTE | 2019-04-18 07:35 | NUR ---
PATIENT PROGRESSING TOWARDS GOALS: PENDING INSURANCE AUTH FOR DISCHARGE. VSS ON ROOM AIR. RECEIVED TYLENOL FOR SHOULDER PAIN WITH RELIEF. PATIENT ABLE TO SLEEP THROUGHOUT SHIFT. CALL LIGHT WITHIN REACH
[2019-04-18 08:00] VITALS: BP 122/54
[2019-04-18 12:00] VITALS: BP 127/55
--- NOTE | 2019-04-18 16:20 | NUR ---
CATRINA CASTANO NBED WITH FAMILY AT BEDSIDE. VITAL SIGNS STABLE ANDPAITENT IN NO APPARENT SIGND OF DISTRESS. HOURLY ROUNDING COMPLETED FOR PATIENT SAFETY. AWAITING INSURANCE AUTH FOR DISCHARGE TO [facility].
[2019-04-18 20:00] VITALS: BP 120/67
--- NOTE | 2019-04-18 20:00 | NUR ---
RECEIVED REPORT AND ASSUMED CARE OF PT, ASSESSMENT COMPLETED. PT PLEASANT AND COOPERATIVE. MOVES SELF IN BED AND WITH ASSIST FOR COMFORT. WILL CONT TO MONITOR AND ASSIST NEEDED.
[2019-04-19] VITALS: BP 112/67
--- NOTE | 2019-04-19 06:59 | NUR ---
SLEPT WELL TONIGHT. ASSESSMENT UNCHANGED. ASSISTED WITH TURNING IN BED. USING URINAL WITHOUT DIFFICULTY. HS GOALS OF REST AND SAFETY ACHIEVED. HOURLY ROUNDING OBSERVED.
[2019-04-19 08:00] VITALS: BP 134/79
[2019-04-19] MEDS ORDERED: DOK PLUS TABLE1 EACH PO (10:50)
--- NOTE | 2019-04-19 12:30 | NUR ---
RECEIVED CALL FROM KIM/[facility], THEY HAVE INSURANCE AUTH AND CAN ACCEPT PT TODAY. PT AND SON/EDUARDO UPDATED OVER THE PHONE. FAXED DC ORDERS TO [facility]. [facility] SET UP W/C VAN FOR 3PM. CHART COPIED AND RN HAS NUMBER TO CALL REPORT
[2019-04-19 12:35] VITALS: BP 134/79
--- NOTE | 2019-04-19 14:05 | PATH ---
[facility] [address] [place] [address] PATHOLOGY RPT PROCEDURE Name: AMARJIT IVORY Room: [address] IN M.R.#: [id number] Admission: 04/12/19 Date of : 31 Discharge: Report #: [id number] Path Case #: [id number] [facility] Accession Number: [id number] . 01 Material submitted: . colon - RANDOM COLON BIOPSIES FOR CHRONIC DIARRHEA . 01 Clinical history: . None provided. . 02 Diagnosis: Colonic mucosa "random colon biopsies": - Features consistent with microscopic colitis. (SHA:radha; 04/19/2019) QMS/04/19/2019 . 02 Comment: The colonic mucosa reveals increased intraepithelial lymphocytes with fairly preserved architecture and increased lamina propria, lymphocytes and plasma cells. Diagnostic features of inflammatory bowel disease are not seen. The findings are most consistent with microscopic colitis. . History of diarrhea noted. . There is no evidence of atypia or malignancy. (SHA:radha; 04/19/2019) . 02 Electronically signed: . Reinier Tran MD, Pathologist NPI- [id number] . 01 Gross description: . Received in formalin labeled "Sharan Amarjit, random colon biopsies for chronic diarrhea" is a 1.3 x 0.5 x 0.2 cm aggregate of galarza-brown mucosa fragments. The specimen is submitted in A1. ([facility]; 04/18/2019) SY/SY . 02 Pathologist provided ICD-10: K52.839 . 02 CPT . 683792 Specimen Comment: A courtesy copy of this report has been sent to Specimen Comment: [phone], , . Specimen Comment: Report sent to ,DR MCCORMACK / DR ARMSTRONG Performed at: [id number] [place] [address] PATHOLOGY RPT PROCEDURE Name: AMARJIT IVORY Room: [address] IN M.R.#: [id number] Admission: 04/12/19 Date of : 31 Discharge: Report #: [id number] Path Case #: [id number] MD Brice Chiu MD Phone: [phone] Performed at: [facility] [address], [place], [place] [id number] MD Uvaldo Monroe MD Phone: [phone]
--- NOTE | 2019-04-19 15:15 | NUR ---
ORDER RECEIVED TO DISCHARGE PATIENT TO [facility]. MED REC, MEDICATION EDUATION, STROKE EDUCATION, AND NEED FOR FOLLOW UP APPOINTMENTS WITH HIS PRIMARY DOCTOR COVERED AND STATED UNDERSTOOD BY PATIENT. IV REMOVED. HOURLY ROUNDING FOR PATIENT SAFETY COMPLETEXD DURING THIS STAY. TRANSPORTER ARRIVED WITH WHEELCHAIR TO TRANPORT PATIENT TO [facility]. PATIET IN NOAPPARENT SIGNS OF DISTRESS AT TIME OF DISCHARGE. DISCHARGE TIME OF 14:45.
--- NOTE | 2019-04-19 16:20 | NUR ---
PT DC PRIOR TO P.T. SESSION. MICHELLE KIM, MPT
--- NOTE | 2019-04-20 14:10 | EEG ---
[address] [address] EEG STUDY REPORT Name: PLACIDO IVORY Room: [address] IN M.R.#: [id number] Admission: 04/12/19 Attend Phys: Shannon Beard MD Discharge: 04/19/19 Date of : 31 Report #: [id number] THIS REPORT FOR: //name// CC: Monster Beard DATE OF SERVICE: 04/15/2019 This patient is being evaluated for altered mental status. EEG was done by placing the electrode by standard 10-20 system of electrode placement. Both referential and sequential montages were used for recording. The background activity in this patient's EEG is about 9 Hz and 30 microvolt. The patient became drowsy and that is associated with bilateral slowing and vertex sharp waves. Photic stimulation was unremarkable. IMPRESSION: The patient's EEG is intermixed with theta range slowing on both sides. That is a nonspecific abnormality, which can occur with dementia, encephalopathy, effect of psychotropic medication, etc. Clinical correlation is recommended. <ELECTRONICALLY SIGNED> By: Rio Rico MD 04/20/19 1410 1351 [id number] Rico MD /nt
--- NOTE | 2019-04-20 14:10 | CON ---
[address] [address] CONSULTATION Name: CACHORROPLACIDODEE Room: [address] IN M.R.#: [id number] Admission: 04/12/19 Attend Phys: Shannon Beard MD Discharge: 04/19/19 Date of : 31 Report #: [id number] THIS REPORT FOR: //name// CC: Monster Beard DATE OF SERVICE: 04/13/2019 HISTORY OF PRESENT ILLNESS: This is an 83-year-old male patient who does not provide any reliable history. I reviewed the patient's extensive records in the computer. 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 Since then, he has been seen or admitted with what looks like dizzy spells and somewhat nonspecific symptoms. When I asked him what he is admitted for, he says for dehydration. He does have a history of diarrhea and may have been dehydrated. Previous to that, he has been admitted with falls. He sometimes slides out of his chair. His MRI has been repeated and another one was done today and that is not available and they have indicated pretty extensive disease, which is chronic. REVIEW OF SYSTEMS: Indicate that there is intermittent deterioration of the patient's symptoms for which no cause is found. He becomes dizzy. He is not able to provide any history, but he has been to rehab. I tried to carry out the 14-point review of systems in this patient. It is all from the records because he does not provide any reliable history. 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 At one time, he had bradycardia. He had multiple falls. His speech looks slurred, but apparently at least according to him, it is his baseline. I do not know how his memory is. On examination today, his memory looks impaired. He has a history of lumbar radiculopathy, dysphagia, difficulty with speech, elevated blood sugar. This is all I can get from him about his 14-point review of systems. PAST MEDICAL HISTORY: Positive for stroke. He also had some prostate carcinoma. FAMILY HISTORY: Negative for early age stroke. SOCIAL HISTORY: He does not smoke or drink alcohol. PHYSICAL EXAMINATION: Indicates he is alert. His speech is extremely dysarthric. He can tell me what month it is, but his memory looks impaired. He is partly oriented. Cranial nerve examination II-XII was attempted, very difficult to tell in this patient who has such profound speech problem. I did not see much focality. He moves all 4 extremities. There is no meningeal sign in this patient. There is no carotid bruit. Pulses are difficult to feel. He has no edema, cyanosis or jaundice. Cardiac examinations appear unremarkable. No respiratory difficulty was noticed. Blood pressure is 142/80, pulse is [address] [place] [address] CONSULTATION Name: PLACIDO IVORY Room: [address] IN ..#: [id number] Admission: 04/12/19 Attend Phys: Shannon Beard MD Discharge: 04/19/19 Date of : 31 Report #: [id number] and temperature is 97.4. LABORATORY DATA: Indicates a white count of 6.6. He did have a CT scan of the head, which showed no acute changes. IMPRESSION: Very difficult to form in this patient. It is possible that this patient had another stroke. It is also possible that this patient has developed some seizures. We will await the MRI. I will get an EEG done and we will try to talk to the son to see if anything else needs to be addressed on this patient. Thank you very much for this referral. If you have any question, please feel free to contact me. <ELECTRONICALLY SIGNED> By: Rio Rico MD 04/20/19 1410 1114 [id number] Rico MD /nt
== END 2019-04-19 14:48 | DRG 641 ==
LOC: M.ERS 14:10 → M.TBA-ER 17:16 → M.2W 17:16 → M.TBA-ER 21:01 → M.2W 21:54
PROVIDERS: Family Medicine; Physician Assistant; ADMIT Internal Medicine
PROC: 0DBE8ZX Excision of Large Intestine, Via Natural or Artificial Opening Endoscopic, Diagnostic (ICD-10-PCS; principal; 2019-04-16)
DX: E86.0 Dehydration (principal); I69.351 Hemiplegia and hemiparesis following cerebral infarction affecting right dominant side; A08.4 Viral intestinal infection, unspecified; I10 Essential (primary) hypertension; E11.9 Type 2 diabetes mellitus without complications; E78.5 Hyperlipidemia, unspecified; D64.9 Anemia, unspecified; K59.00 Constipation, unspecified; K64.4 Residual hemorrhoidal skin tags; K57.30 Diverticulosis of large intestine without perforation or abscess without bleeding; K40.90 Unilateral inguinal hernia, without obstruction or gangrene, not specified as recurrent; K63.89 Other specified diseases of intestine; Z87.01 Personal history of pneumonia (recurrent); Z85.46 Personal history of malignant neoplasm of prostate; Z91.81 History of falling; Z79.82 Long term (current) use of aspirin; Z79.899 Other long term (current) drug therapy